=== PATIENT | female | born 1975 | race Caucasian/White ===

== ENCOUNTER 2016-11-27 17:27 | Emergency (ER) | payer OTHER ==
[~2016-11-27] VITALS: Ht 160 cm; Wt 116.3 kg
[2016-11-27 17:48] VITALS: TEMP 36.7; Ht 160 cm; Wt 116.3 kg
[2016-11-27] MEDS ORDERED: ZNTT/150 PO (18:11)
[2016-11-27] MEDS ORDERED: PANT40TA PO (18:11)
[2016-11-27] MEDS ORDERED: PRENTAB26 PO (18:11)
--- NOTE | 2016-11-27 18:33 | DIAGNOSTIC IMAGING REPORT ---
LEFT VENOUS DOPP LOWER EXT UNILAT CLINICAL HISTORY: Left calf pain. Hx dvt/pe. + pain. Dyspnea. Edema. TECHNIQUE: Ultrasound COMPARISON STUDY: None FINDINGS: Normal study IMPRESSION: Normal study The above report was generated using voice recognition software. It may contain grammatical, syntax or spelling errors. Electronically signed by: Price Nice M.D. 11/27/2016 6:32 PM Dictated Date/Time: 11/27/2016 6:31 PM
[2016-11-27 18:50] VITALS: BP 118/86; PULSE 69; O2SAT 96
--- NOTE | 2016-11-27 19:32 | EMERGENCY ROOM VISIT NOTE ---
History First contact with patient: 17:51 Chief Complaint: CALF PAIN Stated Complaint: L CALF PAIN, HISTORY OF DVT/PE History of Present Illness The patient is a 41 year old female who presents to the Emergency Room with complaints of left calf pain worsening over the past few days. 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 She completed 6 months of anticoagulation and believes that her genetic testing was negative for hypercoagulability. The patient does not have injury or trauma. No significant travel history. At the time of her initial DVT she was on hormonal control, and discontinue this. As the patient is no longer on control, she did check a test a few days ago, and it was positive. Based on dates she estimates that she would be about 6 weeks . The patient has not had fever or chills. No chest pain, chest tightness, or shortness of breath. She states the pain initially started just medial in the calf, and is now posterior. She is able to ambulate. She rates her discomfort a 3/10. She has not taken anything [id number] because of the status. Review of Systems More than 10 systems were reviewed and otherwise negative with the exception of history of present illness. Past Medical/Surgical History History of DVT and PE Family History No pertinent family history Social History Smoking Status: Never Smoker Housing Status: lives with family Occupation Status: employed Current/Historical Medications Scheduled Multivit/Min/Iron/Fol Ac/Pren ( Vitamin), 1 TAB PO TIDM Pantoprazole (Protonix), 40 MG PO QAM Ranitidine (Zantac), 150 MG PO BID Physical Exam Vital Signs Date Time Temp Pulse Resp B/P (MAP) Pulse Ox O2 Delivery O2 Flow Rate FiO2 11/27/16 18:50 69 18 118/86 96 11/27/16 17:48 36.7 82 18 149/95 97 Room Air Pain Rating (0-10): 2.0 Physical Exam VITALS: Vitals are noted on the nurse's note and reviewed by myself. Vital signs stable. GENERAL: Well-developed, well-nourished, white female, who is in no acute distress and resting comfortably. Patient is cooperative with the examination. HEART: Regular rate and rhythm without murmurs gallops or rubs. LUNGS: Clear to auscultation bilaterally without wheezes, rales or rhonchi. No retractions or accessory muscle use. MUSCULOSKELETAL: There is mild left lower extremity tenderness throughout the posterior and medial calf. Several varicose veins are appreciated without obvious phlebitis or palpable cord. No distinct infection noted. There is nonspecific edema to the bilateral lower extremities NEURO: Patient was alert and oriented to person place and time. CN II through XII grossly intact. Medical Decision & Procedures ER Provider Diagnostic Interpretation: LEFT VENOUS DOPP LOWER EXT UNILAT CLINICAL HISTORY: Left calf pain. Hx dvt/pe. + pain. Dyspnea. Edema. TECHNIQUE: Ultrasound COMPARISON STUDY: None FINDINGS: Normal study IMPRESSION: Normal study ED Course Physical exam and history were performed. Nursing notes, EMR, and Medication List were personally reviewed. Patient appears to have left lower extremity pain for the past few days. She does have a history of DVT and PE in the past. Ultrasound was performed and was negative for DVT. The patient and I had a lengthy discussion regarding her findings. She appears comfortable and stable for discharge home. She is to follow with her primary care physician with any ongoing or persisting symptoms. She may use Tylenol for pain control. The patient voiced understanding of this plan and rated her discomfort a 0/10 at the time of departure. The chart was completed utilizing [employer] Speech Voice Recognition Software. Grammatical errors, random word insertions, pronoun errors, and incomplete sentences are an occasional consequence of this system due to software limitations, ambient noise, and hardware issues. Any formal questions or concerns about the content, text, or information contained within the body of this dictation should be directly addressed to the provider for clarification. . Medical Decision Differential diagnosis: Etiologies such as DVT, musculoskeletal, infection, joint effusion, trauma, lymphedema, idiopathic, CHF, as well as others were entertained.. Impression Primary Impression: Pain of left calf Departure Information Dispostion Home / Self-Care Condition GOOD Referrals No Doctor, Assigned (PCP) Forms HOME CARE DOCUMENTATION FORM, IMPORTANT VISIT INFORMATION Patient Instructions My [facility] Additional Instructions You were seen and evaluated today on an emergency basis only. This is not a substitute for, or an effort to provide, complete comprehensive medical care. It is not possible to recognize and treat all injuries or illnesses in a single emergency department visit. For this reason it is recommended that you followup with your primary care physician with any ongoing or persistent symptoms. You are welcome to return to the emergency department anytime with new, worsening, or concerning symptoms.
== END 2016-11-27 18:52 | disposition home or self-care (01) ==
LOC: C.EDB 17:28 → C.EDD 18:52
DX: M79.662 Pain in left lower leg (principal); Z86.718 Personal history of other venous thrombosis and embolism; Z86.711 Personal history of pulmonary embolism

== ENCOUNTER → 2016-11-29 | Outpatient (CLI) | payer OTHER ==
[~2016-11-29] MED LIST: PANT40TA PO; PRENTAB26 PO; ZNTT/150 PO
[2016-11-29 19:10] LABS: URINE APPEARANCE CLEAR (CLEAR); URINE BILIRUBIN NEG (NEG); URINE COLOR YELLOW; URINE NITRITE NEG (NEG); URINE PH 5.5 (4.5-7.5); URINE SPECIFIC GRAVITY 1.009 (1.000-1.030); UROBILINOGEN NEG (NEG)
[2016-11-29 19:11] LABS: MANUAL MICROSCOPIC REQUIRED? NO; REVIEW REQ? NO
== END | disposition home or self-care (01) ==
LOC: C.LABSPEC 15:18
PROVIDERS: ATTEND Obstetrics & Gynecology
DX: O09.511 Supervision of elderly primigravida, first trimester (principal); Z3A.00 Weeks of gestation of pregnancy not specified

== ENCOUNTER → 2016-12-06 | Outpatient (CLI) | payer OTHER ==
[2016-12-06 16:36] LABS: BASO % 0.2 %; BASO ABS # 0.02 K/uL (0-0.2); COMPLETE YES; EOS % 0.6 %; HEMATOCRIT 40.6 % (37-47); IG% 0.2 %; LYMPH ABS # 1.77 K/uL (1.2-3.4); MEAN CELL VOLUME 87.9 fL (80-100); MEAN CORPUSCULAR HEMOGLOBIN 28.8 pg (25-34); MEAN CORPUSCULAR HGB CONC 32.8 g/dl (32-36); MEAN PLATELET VOLUME 10.5 fL (7.4-10.4); MONO % 6.1 %; NEUT % 78.9 %; PLATELET COUNT 296 K/uL (130-400); RED BLOOD COUNT 4.62 M/uL (4.2-5.4); WHITE BLOOD COUNT 12.68 K/uL (4.8-10.8)
[2016-12-09 11:51] LABS: CHLAMYDIA TRACH RNA*** NOT DETECTED (NOT DETECTED); GC (NEIS GONORRHOEAE)RNA** NOT DETECTED (NOT DETECTED)
== END | disposition home or self-care (01) ==
LOC: C.LAB1850 15:02
PROVIDERS: ATTEND Obstetrics & Gynecology
DX: O09.511 Supervision of elderly primigravida, first trimester (principal)

== ENCOUNTER → 2016-12-06 | Outpatient (CLI) | payer OTHER | END | disposition home or self-care (01) | LOC: C.PAPS 07:56 | PROVIDERS: ATTEND Obstetrics & Gynecology | DX: O09.511 Supervision of elderly primigravida, first trimester (principal) ==

== ENCOUNTER → 2017-02-10 | Outpatient (CLI) | payer OTHER ==
[2017-02-10 22:32] LABS: GTGD 50 Grams
== END | disposition home or self-care (01) ==
LOC: C.LAB1850 15:05
PROVIDERS: ATTEND Obstetrics & Gynecology
DX: O09.512 Supervision of elderly primigravida, second trimester (principal); Z3A.00 Weeks of gestation of pregnancy not specified

== ENCOUNTER 2017-04-08 07:20 | Emergency (ER) | payer OTHER ==
[~2017-04-08] VITALS: Ht 160 cm; Wt 122.2 kg
[2017-04-08 07:23] VITALS: TEMP 36.5; Ht 160 cm; Wt 122.2 kg
[2017-04-08] MEDS ORDERED: SODIUM CHLORIDE 0.9% 1000ML 1,000 ML IV STA (07:48)
[2017-04-08] MEDS ORDERED: OPTIRAY 320 IV PRN (08:00)
[2017-04-08 08:02] LABS: BASO % 0.2 %; BASO ABS # 0.02 K/uL (0-0.2); COMPLETE YES; EOS % 0.6 %; HEMATOCRIT 36.1 % (37-47); IG% 0.3 %; LYMPH % 10.8 %; LYMPH ABS # 0.93 K/uL (1.2-3.4); MEAN CELL VOLUME 89.1 fL (80-100); MEAN CORPUSCULAR HEMOGLOBIN 30.4 pg (25-34); MEAN CORPUSCULAR HGB CONC 34.1 g/dl (32-36); MONO % 6.5 %; NEUT % 81.6 %; PLATELET COUNT 234 K/uL (130-400); RED BLOOD COUNT 4.05 M/uL (4.2-5.4); WHITE BLOOD COUNT 8.63 K/uL (4.8-10.8)
--- NOTE | 2017-04-08 08:03 | EMERGENCY ROOM VISIT NOTE ---
History Report prepared by Ruthy: Edna Sandoval Under the Supervision of: Dr. Nola Biswas M.D. First contact with patient: 07:28 Chief Complaint: TACHYCARDIA Stated Complaint: TACHYCARDIA Nursing Triage Summary: Walking into work today and felt tachycardic, feels short of breath, checked BP at work, systolic was 160's. Pt is 26 weeks . Reports hx of PE. History of Present Illness The patient is a 41 year old female who presents to the Emergency Room with complaints of sudden tachycardia that began prior to arrival. The patient states that she walked up the stairs to work this morning and states that she felt her heart rate become tachycardic. She states that she became short of breath as well. The patient reports that she was placed on the monitor and states that her tachycardia was 150 beats per minute and her blood pressure was 162/92 mmHg. The patient states that she is currently 26 weeks . She states that three years ago she had a DVT and PE. The patient states that her blood clots were due to her NuvaRing. She states that she is no longer on Lovenox, but states that the plan is to place her on 6 weeks of Lovenox shots . The patient states that her shortness of breath today feels different than her shortness of breath she had with her PEs. Source of History: patient Onset: prior to arrival Position: other (global) Quality: other (tachycardia) Timing: other (sudden) Associated Symptoms: + SOB Review of Systems See HPI for pertinent positives & negatives. A total of 10 systems reviewed and were otherwise negative. Past Medical & Surgical Medical Problems: (1) Acid reflux (2) DVT (deep venous thrombosis) (3) Hypertension (4) Pulmonary embolism Surgical Problems: (1) S/P gastrectomy Family History Cancer Diabetes mellitus Heart disease Hypertension Social History Smoking Status: Never Smoker Smokeless Tobacco Use: No Alcohol Use: none Marital Status: Housing Status: lives with family Occupation Status: employed Current/Historical Medications Scheduled Multivit/Min/Iron/Fol Ac/Pren ( Vitamin), 1 TAB PO TIDM Pantoprazole (Protonix), 40 MG PO QAM Ranitidine (Zantac), 150 MG PO BID Allergies Coded Allergies: Bupropion (Verified Allergy, Severe, HIVES, 04/08/17) Physical Exam Vital Signs Date Time Temp Pulse Resp B/P (MAP) Pulse Ox O2 Delivery O2 Flow Rate FiO2 04/08/17 12:58 81 18 140/71 96 Room Air 04/08/17 11:45 76 16 125/70 97 Room Air 04/08/17 10:23 87 18 143/84 99 Room Air 04/08/17 08:05 92 112/66 99 Room Air 91 120/74 114 144/80 04/08/17 07:52 98 18 141/88 97 Room Air 04/08/17 07:44 102 04/08/17 07:23 98 Room Air 04/08/17 07:23 36.5 109 20 142/85 99 Room Air Physical Exam Vital signs reviewed. General: Well-appearing female, in no significant distress. Pulse ox is noted to be stable HEENT: No scleral icterus, PERRLA, neck supple. Atraumatic. Cardiovascular: Borderline tachycardic rate and regular rhythm, no extra sounds. Pulmonary: Clear to auscultation bilaterally, normal work of breathing. Abdomen: Obese. Soft, nontender, nondistended, positive bowel sounds. Musculoskeletal: Atraumatic, non-pitting edema to lower extremities, spider varicosities of the legs bilaterally. Neurologic: Patient awake alert and oriented x 3 Skin: Warm, dry, no rash Medical Decision & Procedures ER Provider Diagnostic Interpretation: Radiology results as stated below per my review and radiologist interpretation: CT ANGIOGRAM OF THE CHEST CLINICAL HISTORY: Shortness of breath. . COMPARISON STUDY: No previous studies for comparison. TECHNIQUE: Following the IV administration of 91 mL of Optiray-320, CT angiogram of the thorax was performed from the thoracic inlet to the lung bases utilizing the pulmonary embolus protocol. Images are reviewed in the axial, sagittal, and coronal planes. IV contrast was administered without complication. MIP imaging was performed. A dose lowering technique was utilized adhering to the principles of ALARA. CT DOSE: 542.23 mGy.cm FINDINGS: No pathologically enlarged axillary mediastinal or hilar lymph nodes were visualized. There was no evidence of thoracic aortic dilatation. There is suboptimal pulmonary arterial opacification. There are no filling defects to indicate acute pulmonary emboli. No pleural effusions are visualized. There was no evidence of focal pulmonary consolidation. IMPRESSION: 1. No pulmonary emboli identified however pulmonary opacification was suboptimal. Correlation with leg ultrasonography is therefore recommended 2. No evidence of focal pulmonary consolidation Electronically signed by: Gary Hines M.D. 04/08/2017 9:23 AM Dictated Date/Time: 04/08/2017 9:19 AM ULTRASOUND VENOUS DOPPLER LWR EXT BILA CLINICAL HISTORY: . History of pulmonary embolism. COMPARISON STUDY: November 27, 2016 FINDINGS: Real-time and color flow Doppler imaging were performed. Flow was seen within the femoral, popliteal and calf veins with no intraluminal thrombus demonstrated. The saphenous vein is patent. There are patent superficial varicosities within the anterior mid thigh IMPRESSION: No evidence of lower extremity DVT Electronically signed by: Gary Hines M.D. 04/08/2017 11:37 AM Dictated Date/Time: 04/08/2017 11:36 AM GALLBLADDER-ABD LIMITED CLINICAL HISTORY: 41 years-old Female presenting with preg, RUQ pain, tachycardia. TECHNIQUE: Real-time grayscale and limited color Doppler ultrasound imaging of the abdomen limited to the right upper quadrant was performed. COMPARISON: None. FINDINGS: Pancreas: Visualized portions of the pancreatic head and body normal. Liver: Normal echogenicity and echotexture. The liver measures 17 cm in maximal sagittal dimension. No sonographic evidence of hepatic mass. Main portal vein patent with normal directional flow. Biliary: No intrahepatic biliary ductal dilatation. Common bile duct measures up to 5 mm in diameter. Gallbladder: No evidence of gallstones, gallbladder wall thickening, gallbladder distention, or pericholecystic fluid or inflammatory change. Trace gallbladder sludge may be present. Right kidney: Normal in appearance. No hydronephrosis. Ascites: None. IMPRESSION: Trace gallbladder sludge may be present. No cholelithiasis or biliary ductal dilatation. Electronically signed by: Chin Foote M.D. 04/08/2017 11:39 AM Dictated Date/Time: 04/08/2017 11:37 AM Laboratory Results 04/08/17 07:35 Red Blood Count 4.05, Mean Corpuscular Volume 89.1, Mean Corpuscular Hemoglobin 30.4, Mean Corpuscular Hemoglobin Concent 34.1, Mean Platelet Volume 10.0, Neutrophils (%) (Auto) 81.6, Lymphocytes (%) (Auto) 10.8, Monocytes (%) (Auto) 6.5, Eosinophils (%) (Auto) 0.6, Basophils (%) (Auto) 0.2, Neutrophils # (Auto) 7.04, Lymphocytes # (Auto) 0.93, Monocytes # (Auto) 0.56, Eosinophils # (Auto) 0.05, Basophils # (Auto) 0.02 04/08/17 07:35 Test 04/08/17 07:35 04/08/17 08:12 White Blood Count 8.63 K/uL (4.8-10.8) Red Blood Count 4.05 M/uL (4.2-5.4) Hemoglobin 12.3 g/dL (12.0-16.0) Hematocrit 36.1 % (37-47) Mean Corpuscular Volume 89.1 fL (80-100) Mean Corpuscular Hemoglobin 30.4 pg (25-34) Mean Corpuscular Hemoglobin Concent 34.1 g/dl (32-36) Platelet Count 234 K/uL (130-400) Mean Platelet Volume 10.0 fL (7.4-10.4) Neutrophils (%) (Auto) 81.6 % Lymphocytes (%) (Auto) 10.8 % Monocytes (%) (Auto) 6.5 % Eosinophils (%) (Auto) 0.6 % Basophils (%) (Auto) 0.2 % Neutrophils # (Auto) 7.04 K/uL (1.4-6.5) Lymphocytes # (Auto) 0.93 K/uL (1.2-3.4) Monocytes # (Auto) 0.56 K/uL (0.11-0.59) Eosinophils # (Auto) 0.05 K/uL (0-0.5) Basophils # (Auto) 0.02 K/uL (0-0.2) RDW Standard Deviation 45.8 fL (36.4-46.3) RDW Coefficient of Variation 14.1 % (11.5-14.5) Immature Granulocyte % (Auto) 0.3 % Immature Granulocyte # (Auto) 0.03 K/uL (0.00-0.02) Anion Gap 9.0 mmol/L (3-11) Est Creatinine Clear Calc Drug Dose 171.0 ml/min Estimated GFR () 136.1 Estimated GFR (Non- 117.5 BUN/Creatinine Ratio 11.2 (10-20) Calcium Level 8.7 mg/dl (8.5-10.1) Magnesium Level 2.0 mg/dl (1.8-2.4) Total Bilirubin 0.3 mg/dl (0.2-1) Direct Bilirubin < 0.1 mg/dl (0-0.2) Aspartate Amino Transf (AST/SGOT) 15 U/L (15-37) Alanine Aminotransferase (ALT/SGPT) 21 U/L (12-78) Alkaline Phosphatase 64 U/L (45-117) Total Protein 7.2 gm/dl (6.4-8.2) Albumin 3.0 gm/dl (3.4-5.0) Thyroid Stimulating Hormone (TSH) 1.770 uIu/ml (0.300-4.500) Urine Color YELLOW Urine Appearance CLEAR (CLEAR) Urine pH 7.0 (4.5-7.5) Urine Specific [place] 1.006 (1.000-1.030) Urine Protein NEG (NEG) Urine Glucose (UA) NEG (NEG) Urine Ketones NEG (NEG) Urine Occult Blood NEG (NEG) Urine Nitrite NEG (NEG) Urine Bilirubin NEG (NEG) Urine Urobilinogen NEG (NEG) Urine Leukocyte Esterase NEG (NEG) Laboratory results per my review. Medications Administered Medications (Trade) Dose Ordered Sig/Huan Route Start Time Stop Time Status Last Admin Dose Admin Sodium Chloride 1,000 ml @ 999 mls/hr Q1H1M STAT IV 04/08/17 07:48 04/08/17 08:49 DC 04/08/17 07:48 999 MLS/HR ECG Indication: tachycardia Rate (beats per minute): 85 Rhythm: normal sinus Findings: no acute ischemic change, no ectopy, other (t wave flattening ) ED Course 0748: Ordered Sodium Chloride 1000 ml @ 999 mls/hr IV. 0750: Past medical records reviewed. The patient was evaluated in room A11B. A complete history and physical examination was performed. 1244: I reevaluated the patient and she is resting comfortably. I discussed the test results with her and I discussed the treatment plan. She verbalized complete understanding and agreement. She is ready to go home. Medical Decision Differential diagnosis: Etiologies such as premature contractions, electrolyte abnormality, cardiac dysrhythmia, thyroid dysfunction, pulmonary embolism, infection, gastrointestinal, as well as others were entertained. This patient was evaluated and appeared to be in no significant distress. IV access was obtained and laboratory work was drawn. The patient was hydrated with normal saline solution. EKG reveals a sinus tachycardia. The patient is 26 weeks . She has been evaluated by hematology for history of DVT and PE. She is not currently anticoagulated. The patient's symptoms did improve with IV hydration. Given her history we did discuss the risks and benefits of a CT angiogram. This study was performed and unfortunately was timed poorly. Ultrasound of the lower extremities were performed and are negative for DVT. The patient was reassessed and was feeling well. She was advised to drink plenty of fluids. She'll follow-up with DENTAL SALES REPRESENTATIVE within the next several days and return to the ER for worsening of symptoms or any medical concerns. Medication Reconcilliation Current Medication List: was personally reviewed by me Impression Primary Impression: Dehydration Additional Impression: Scribe Attestation The scribe's documentation has been prepared under my direction and personally reviewed by me in its entirety. I confirm that the note above accurately reflects all work, treatment, procedures, and medical decision making performed by me. Departure Information Dispostion Discharge/Transfer to [facility] Referrals No Doctor, Assigned (PCP) Forms HOME CARE DOCUMENTATION FORM, IMPORTANT VISIT INFORMATION, WORK / SCHOOL INSTRUCTIONS Patient Instructions My [facility] Additional Instructions Diagnosis: Dehydration, Please drink plenty of clear fluids. Follow-up with your DENTAL SALES REPRESENTATIVE as soon as possible for reevaluation. Return to the emergency department for worsening of symptoms or any medical concerns. Problem Qualifiers
[2017-04-08 08:18] LABS: ALT/SGPT 21 U/L (12-78); BLOOD UREA NITROGEN 6 mg/dl (7-18); BUN/CREATININE RATIO 11.2 (10-20); CALCIUM 8.7 mg/dl (8.5-10.1); CARBON DIOXIDE 22 mmol/L (21-32); CHLORIDE 105 mmol/L (98-107); CREATININE 0.56 mg/dl (0.60-1.20); GLUCOSE 102 mg/dl (70-99); POTASSIUM 3.7 mmol/L (3.5-5.1); SODIUM 136 mmol/L (136-145)
[2017-04-08 08:23] LABS: URINE APPEARANCE CLEAR (CLEAR); URINE BILIRUBIN NEG (NEG); URINE COLOR YELLOW; URINE NITRITE NEG (NEG); URINE SPECIFIC GRAVITY 1.006 (1.000-1.030); UROBILINOGEN NEG (NEG); ZZUR CULT IF INDIC CLEAN CATCH NO
[2017-04-08 08:29] LABS: ALKALINE PHOSPHATASE 64 U/L (45-117); AST/SGOT 15 U/L (15-37)
[2017-04-08 08:29] LABS: MANUAL MICROSCOPIC REQUIRED? NO; REVIEW REQ? NO
--- NOTE | 2017-04-08 09:25 | DIAGNOSTIC IMAGING REPORT ---
CT ANGIOGRAM OF THE CHEST CLINICAL HISTORY: Shortness of breath. . COMPARISON STUDY: No previous studies for comparison. TECHNIQUE: Following the IV administration of 91 mL of Optiray-320, CT angiogram of the thorax was performed from the thoracic inlet to the lung bases utilizing the pulmonary embolus protocol. Images are reviewed in the axial, sagittal, and coronal planes. IV contrast was administered without complication. MIP imaging was performed. A dose lowering technique was utilized adhering to the principles of ALARA. CT DOSE: 542.23 mGy.cm FINDINGS: No pathologically enlarged axillary mediastinal or hilar lymph nodes were visualized. There was no evidence of thoracic aortic dilatation. There is suboptimal pulmonary arterial opacification. There are no filling defects to indicate acute pulmonary emboli. No pleural effusions are visualized. There was no evidence of focal pulmonary consolidation. IMPRESSION: 1. No pulmonary emboli identified however pulmonary opacification was suboptimal. Correlation with leg ultrasonography is therefore recommended 2. No evidence of focal pulmonary consolidation Electronically signed by: Gary Hines M.D. 04/08/2017 9:23 AM Dictated Date/Time: 04/08/2017 9:19 AM
--- NOTE | 2017-04-08 11:38 | DIAGNOSTIC IMAGING REPORT ---
ULTRASOUND VENOUS DOPPLER LWR EXT BILA CLINICAL HISTORY: . History of pulmonary embolism. COMPARISON STUDY: November 27, 2016 FINDINGS: Real-time and color flow Doppler imaging were performed. Flow was seen within the femoral, popliteal and calf veins with no intraluminal thrombus demonstrated. The saphenous vein is patent. There are patent superficial varicosities within the anterior mid thigh IMPRESSION: No evidence of lower extremity DVT Electronically signed by: Gary Hines M.D. 04/08/2017 11:37 AM Dictated Date/Time: 04/08/2017 11:36 AM
--- NOTE | 2017-04-08 11:40 | DIAGNOSTIC IMAGING REPORT ---
GALLBLADDER-ABD LIMITED CLINICAL HISTORY: 41 years-old Female presenting with preg, RUQ pain, tachycardia. TECHNIQUE: Real-time grayscale and limited color Doppler ultrasound imaging of the abdomen limited to the right upper quadrant was performed. COMPARISON: None. FINDINGS: Pancreas: Visualized portions of the pancreatic head and body normal. Liver: Normal echogenicity and echotexture. The liver measures 17 cm in maximal sagittal dimension. No sonographic evidence of hepatic mass. Main portal vein patent with normal directional flow. Biliary: No intrahepatic biliary ductal dilatation. Common bile duct measures up to 5 mm in diameter. Gallbladder: No evidence of gallstones, gallbladder wall thickening, gallbladder distention, or pericholecystic fluid or inflammatory change. Trace gallbladder sludge may be present. Right kidney: Normal in appearance. No hydronephrosis. Ascites: None. IMPRESSION: Trace gallbladder sludge may be present. No cholelithiasis or biliary ductal dilatation. Electronically signed by: Chin Foote M.D. 04/08/2017 11:39 AM Dictated Date/Time: 04/08/2017 11:37 AM
[2017-04-08 12:58] VITALS: BP 140/71; PULSE 81; O2SAT 96
== END 2017-04-08 13:16 | disposition home or self-care (01) ==
LOC: C.EDB 07:20 → C.EDA 13:16
DX: E86.0 Dehydration (principal); Z33.1 Pregnant state, incidental; I10 Essential (primary) hypertension; K21.9 Gastro-esophageal reflux disease without esophagitis; Z86.711 Personal history of pulmonary embolism; Z86.718 Personal history of other venous thrombosis and embolism; Z90.3 Acquired absence of stomach [part of]; Z83.3 Family history of diabetes mellitus; Z82.49 Family history of ischemic heart disease and other diseases of the circulatory system

== ENCOUNTER → 2017-05-02 | Outpatient (CLI) | payer OTHER ==
[~2017-05-02] MED LIST changes: +ALPR0.25 PO; +ALPR0.254 PO; +CMD10 PO; +DOCU-94 PO; +LVNIS120 SC; +LVNIS40 SQ; +RANI150T85 PO; +WARF5TAB7 PO; -ZNTT/150 PO
[2017-05-02 15:31] LABS: HEMATOCRIT 35.7 % (37-47)
== END | disposition home or self-care (01) ==
LOC: C.LAB1850 14:18
PROVIDERS: ATTEND Obstetrics & Gynecology
DX: O09.512 Supervision of elderly primigravida, second trimester (principal); Z3A.00 Weeks of gestation of pregnancy not specified

== ENCOUNTER 2017-07-11 11:43 | Observation (INO) | payer OTHER ==
[~2017-07-11 11:43] MED LIST changes: -ALPR0.25 PO; -ALPR0.254 PO; -CMD10 PO; -DOCU-94 PO; -LVNIS120 SC; -LVNIS40 SQ; -WARF5TAB7 PO
[2017-07-11] MEDS ORDERED: LACTATED RINGER'S 1000ML 500 ML IV ONE (14:47)
[2017-07-11] MEDS ORDERED: LACTATED RINGER'S 1000ML 1,000 ML IV SCH (14:47)
[2017-07-11] MEDS ORDERED: IV FLUIDS COMPLETED PRN (15:00)
== END 2017-07-11 17:00 | disposition home or self-care (01) ==
LOC: C.OPB 11:43 → C.LD 11:44 → C.OPB 14:49 → EDSTATUS 07-14 11:41
PROVIDERS: ADMIT Obstetrics & Gynecology; ATTEND Obstetrics & Gynecology
DX: O09.513 Supervision of elderly primigravida, third trimester (principal); Z3A.39 39 weeks gestation of pregnancy

== ENCOUNTER 2017-07-12 00:46 | Inpatient (IN) | payer OTHER ==
[~2017-07-12] VITALS: Ht 160 cm; Wt 129.0 kg
[2017-07-12] MEDS ORDERED: LACTATED RINGER'S 1000ML 1,000 ML IV SCH ×2 (00:57→07:50)
[2017-07-12] MEDS ORDERED: LACTATED RINGER'S 1000ML 500 ML IV ONE (00:57)
[2017-07-12] MEDS: BUTORPHANOL TARTRATE 1 MG/ML VIAL IV PRN ×2 (01:28→04:02)
[2017-07-12] MEDS ORDERED: LACTATED RINGER'S 1000ML 1,000 ML IV PRN (07:50)
[2017-07-12] MEDS ORDERED: EpHEDrine SULFATE INJ 50 MG/ML AMP ONE (08:00)
[2017-07-12] MEDS ORDERED: BUPIVACAINE 0.25% 30 ML VIAL ONE (08:00)
[2017-07-12] MEDS ORDERED: FENTANYL CITRATE INJ 50 MCG/1 ML 2 ML VIAL ONE ×2 (08:01→08:48)
[2017-07-12] MEDS ORDERED: FENTANYL 2MCG/ML ROPIV 1.25MG/ML 100ML BAG EPI ONE (08:01)
[2017-07-12 08:14] LABS: HEMATOCRIT 33.8 % (37-47); HEMOGLOBIN 11.4 g/dL (12.0-16.0); MEAN CELL VOLUME 86.9 fL (80-100); MEAN CORPUSCULAR HEMOGLOBIN 29.3 pg (25-34); MEAN CORPUSCULAR HGB CONC 33.7 g/dl (32-36); MEAN PLATELET VOLUME 9.9 fL (7.4-10.4); PLATELET COUNT 233 K/uL (130-400); RED CELL DISTRIBUTION WIDTH CV 14.7 % (11.5-14.5); RED CELL DISTRIBUTION WIDTH SD 45.8 fL (36.4-46.3); WHITE BLOOD COUNT 11.83 K/uL (4.8-10.8)
[2017-07-12] MEDS ORDERED: PENICILLIN G POTASSIUM IV 6 MU in DEXTROSE 5% 250ML 250 ML IV ONE (08:15)
[2017-07-12] MEDS ORDERED: DiphenhydrAMINE HCL 50 MG/ML VIAL IV PRN (10:00)
[2017-07-12] MEDS ORDERED: ONDANSETRON INJ 2 MG/ML 2 ML VIAL IV PRN (10:00)
[2017-07-12] MEDS ORDERED: FENTANYL 2MCG/ML ROPIV 1.25MG/ML 100ML BAG EPI PRN (10:00)
[2017-07-12] MEDS ORDERED: EpHEDrine SULFATE INJ 50 MG/ML AMP IV PRN (10:00)
[2017-07-12] MEDS ORDERED: NALBUPHINE HCL INJ 10 MG/ML AMP IV PRN (10:00)
[2017-07-12] MEDS ORDERED: NALOXONE HCL INJ 0.4 MG/1 ML VIAL/CARP IV PRN (10:00)
[2017-07-12] MEDS ORDERED: LACTATED RINGER'S 1000ML 500 ML IV PRN ×2 (10:00→11:13)
[2017-07-12] MEDS ORDERED: NALOXONE HCL INJ 1 MG in SODIUM CHLORIDE 0.9% 1000ML 1,000 ML IV PRN (10:00)
[2017-07-12] MEDS ORDERED: OXYTOCIN 30 UNITS/500ML NSS IV PRN ×2 (11:15→18:15)
[2017-07-12] MEDS: PENICILLIN G POTASSIUM IV 3 MU in DEXTROSE 5% 100ML 100 ML IV PRN ×2 (12:37→16:18)
[2017-07-12 16:25] VITALS: Ht 160 cm; Wt 129.0 kg
[2017-07-12] MEDS ORDERED: MISOPROSTOL 200 MCG TAB ONE (18:12)
[2017-07-12] MEDS ORDERED: OXYCODONE/ACETAMINOPHEN 5-325 TAB PO PRN (18:15)
[2017-07-12] MEDS ORDERED: BENZOCAINE 20% AER SPR 82.5 GM CAN EXT PRN (18:15)
[2017-07-12] MEDS ORDERED: ACETAMINOPHEN 325 MG TAB PO PRN (18:15)
[2017-07-12] MEDS ORDERED: LANOLIN OINT EXT PRN (18:15)
[2017-07-12] MEDS ORDERED: DIPHTHERIA/TETANUS/PERTUSSIS 0.5 ML SYR/VIAL IM. ONE (18:15)
[2017-07-12] MEDS ORDERED: HYDROCORTISONE ACETATE 25 MG SUPP PR PRN (18:15)
[2017-07-12] MEDS ORDERED: SUPERCREAM 0.870 % 15GM JAR EXT PRN (18:15)
[2017-07-12] MEDS ORDERED: OXYTOCIN INJ 20 UNITS in LACTATED RINGER'S 1000ML 1,000 ML IV SCH (18:30)
[2017-07-12] MEDS ORDERED: MISOPROSTOL 200 MCG TAB PR ONE (18:30)
--- NOTE | 2017-07-12 18:59 | Anesthesia Procedure Note ---
Anesthesia Epidural Removal Nt Date & Time Jul 12, 2017 at 18:59 Vital Signs Pain Intensity: 8.0 Notes Mental Status: alert / awake / arousable, participated in evaluation Nausea / Vomiting: adequately controlled Pain: adequately controlled Airway Patency, RR, SpO2: stable & adequate BP & HR: stable & adequate Hydration State: stable & adequate Neuraxial Anesthesia: was administered, sensory block is resolving Anesthetic Complications: no major complications apparent, pt satisfied with anesthetic care Epidural: removed without complications, with tip intact
--- NOTE | 2017-07-12 19:07 | DELIVERY SUMMARY ---
DATE OF OPERATION: 07/12/2017 The patient dilated to complete and pushed to deliver a viable male , Apgars 8 and 9 via over second degree perineal laceration. Mouth and nose bulb suctioned at the perineum. Shoulders and body delivered with ease. Infant was vigorous at . Cord clamped at 30 seconds of life. Infant to maternal abdomen, where the cord was doubly clamped and then cut. Placenta delivered spontaneously and intact, 3-vessel cord. Hemostasis achieved with dilute Pitocin and uterine massage, however due to an uncontracted lower uterine segment, the bladder was drained under sterile conditions for 250 mL of urine. Additionally 800 mcg of rectal Cytotec was administered. Uterine tone improved. The cervix and sulci were intact. The laceration was repaired in the usual fashion with 3-0 Vicryl. EBL 400 mL. Mother and baby stable in recovery. I attest to the content of the Intraoperative Record and any orders documented therein. Any exceptions are noted below. MTDD
[2017-07-12 21:05] VITALS: BP 129/83; PULSE 93; TEMP 36.9; O2SAT 97
[2017-07-12] MEDS: RANITIDINE HCL 150 MG TAB PO SCH (21:25)
[2017-07-12] MEDS: DOCUSATE SODIUM 100 MG CAP PO SCH (21:25)
[2017-07-12 23:25] VITALS: BP 133/84; PULSE 84; TEMP 36.8; O2SAT 98
--- NOTE | 2017-07-12 23:34 | Progress Note ---
Progress Note Date of Service Jul 12, 2017. Progress Note reviewed with pharmacy and confirmed with nursing. epidural removed at 630pm today. no further bleeding at site. pt's hematology consult earlier in reviewed with plan for pp lovenox 40mg daily sq. given now more than 4hr from removal neuraxial anesthesia and about 6+hr from delivery will plan to start medication. pt offered arelis fallon if she wants as its noted that she routinely uses.
[2017-07-12] MEDS: ENOXAPARIN 40 MG/0.4 ML SYR SQ SCH (23:52)
[2017-07-13 04:15] VITALS: BP 125/75; PULSE 91; TEMP 36.8; O2SAT 94
[2017-07-13 07:54] LABS: HEMATOCRIT 28.7 % (37-47); HEMOGLOBIN 9.2 g/dL (12.0-16.0)
[2017-07-13 08:12] LABS: PTT PATIENT 26.1 SECONDS (21.0-31.0)
[2017-07-13 08:30] VITALS: BP 113/75; PULSE 84; TEMP 36.9; O2SAT 97
[2017-07-13] MEDS: IBUPROFEN 600 MG TAB PO PRN ×3 (08:33→18:19)
[2017-07-13] MEDS: PANTOprazole SOD 40 MG TAB PO SCH (08:33)
[2017-07-13] MEDS: RANITIDINE HCL 150 MG TAB PO SCH ×2 (08:33→20:37)
[2017-07-13] MEDS: DOCUSATE SODIUM 100 MG CAP PO SCH ×2 (08:33→20:37)
--- NOTE | 2017-07-13 08:51 | Progress Note ---
Subjective Jul 13, 2017. Subjective conversation w/ patient, physical exam Ambulation: ambulating normally Voiding: no voiding problems Diet Tolerance: Regular Diet Feeding Type: Breast Feeding Pain: good pain control Comment: cramps in right calf, feels musculoskelatal. no cord, no redness no lump. Objective Vital Signs Date Time Temp Pulse Resp B/P (MAP) Pulse Ox O2 Delivery O2 Flow Rate FiO2 07/13/17 04:15 36.8 91 16 125/75 (92) 94 Room Air 07/12/17 23:25 98 Room Air 07/12/17 23:25 36.8 84 20 133/84 (100) 98 Room Air 07/12/17 21:05 97 Room Air 07/12/17 21:05 36.9 93 18 129/83 (98) 97 Room Air Physical Exam General Appearance: WELL-APPEARING, WD/WN, NO APPARENT DISTRESS Respiratory/Chest: lungs clear Cardiovascular: regular rate, rhythm Abdomen: non tender Fundus: Firm, Relation to Umbilicus (2 down) Extremities: non-tender, normal inspection, no calf tenderness Laboratory Results Last 24 Hours Test 07/13/17 07:36 Hemoglobin 9.2 g/dL Hematocrit 28.7 % Prothrombin Time 10.4 SECONDS Prothromb Time International Ratio 1.0 Activated Partial Thromboplast Time 26.1 SECONDS Partial Thromboplastin Ratio 1.0 Assessment and Plan Problem List Medical Problems: (1) Dehydration Status: Acute (2) Pain of left calf Status: Acute (3) Status: Acute Post- Day#: 1 Continue Routine Care: stable routine care. advised close monitoring of her muscle ache in calf. given her history. cont on lovenox. daily.
[2017-07-13 12:00] VITALS: BP 114/72; PULSE 77; TEMP 36.4; O2SAT 95
[2017-07-13 16:40] VITALS: BP 103/69; PULSE 79; TEMP 36.6; O2SAT 97
[2017-07-13] MEDS: ENOXAPARIN 40 MG/0.4 ML SYR SQ SCH (20:39)
[2017-07-13 23:30] VITALS: BP 117/65; PULSE 75; TEMP 36.7
[2017-07-14] MEDS ORDERED: LVNIS40 SQ (00:39)
--- NOTE | 2017-07-14 00:40 | Discharge Instructions ---
Discharge Instructions Date of Service Jul 14, 2017. Admission Reason for Admission: Normal Labor Discharge Discharge Diagnosis / Problem: AFTER DELIVERY Discharge Goals Goal(s): Routine recovery after delivery Medications Continue Dispensed Medications: supercream, dermaplast, tucks, lansinoh Activity Recommendations Activity Limitations: as noted below ACTIVITY RECOMMENDATIONS: * Gradual return to full activity over the next 2-3 weeks. * No lifting - nothing heavier than baby over the next 2-3 weeks. * Do not engage in vigorous exercise, sexual activity or sports until cleared by your physician. * Do not drive or operate any motorized equipment until cleared by your physician. * You may shower/bathe daily. MEDICATIONS: For discomfort or pain, you may use Acetaminophen (Tylenol), Ibuprofen (Advil), or Naproxen (Aleve) following the package directions. For constipation you may use Colace following the package directions. BREAST CARE: If you are not breast feeding: * Wear a supportive bra 24 hours a day for one to two weeks. * Avoid stimulating your breasts and nipples as much as possible during the first few weeks after delivery. * When taking a shower, have the warm water hit your back, not breasts. * When your breasts feel full, apply ice packs. Usually three to four times a day helps ease the discomfort. * Take a mild pain medication (Tylenol / Motrin) when you are uncomfortable. If breast feeding: * Use breast milk to lubricate nipples. Lansinoh cream may be used for sore nipples. You do not need to remove cream prior to breast feeding. If using a different brand of cream, check the label for directions regarding removal of cream prior to nursing. * Wear a supportive bra. * If having problems with breasts or breast feeding, call a configuration management consultant or your health care provider. EPISIOTOMY CARE: After delivery, if you have an episiotomy (stitches), the following steps will ease discomfort and aid healing. * For the first 24 hours after delivery, place ice packs next to your episiotomy to help reduce swelling. * After the first 24 hour-period, sitz baths, either portable or in the tub, are suggested. A shower with a shower arm sprayed over the episiotomy may be comforting. * Rosie care should be done after each voiding and bowel movement. Squirt warm water from a plastic bottle over the perineum (region of the body between the anus and urinary opening) and pat dry. * Use Dermoplast to ease discomfort. Shake container. Amite directly over the episiotomy. Place a Tucks on a clean sanitary pad next to your episiotomy. SPECIAL CARE INSTRUCTIONS: When you are discharged from the hospital, it is important for you to follow the instructions listed below: * During the first week at home, you should be able to care for yourself and your baby. In addition, the usual light household activities are encouraged. * Limit your activities to the way you feel. Do not try to clean the house or move furniture. Be sensible. * If you actively engage in sports and have done so up until the time of your delivery, you may resume these activities as soon as you feel able. This may take up to one month or even longer. Use good judgment. * Continue to take your vitamins for at least six weeks after the of your baby. * Your diet need not be limited unless you were on a special diet before your delivery. Breast-feeding mothers need around 2500 calories per day and at least 64-80 ounces of fluid per day (8 to 10 glasses). * You should eat foods from the four major food groups. Crash diets or fad diets are to be avoided. Eating lean meats, fresh fruits and vegetables, low-fat dairy products, high fiber foods and a regular exercise program, will help you get back to your pre- weight without putting your health at risk. * Constipation is sometimes a problem after delivery. Take a mild laxative as needed. If breast feeding, Milk of Magnesia is acceptable to use. You may use a suppository or Fleets enema if no episiotomy. * A daily shower or tub bath is suggested. Be sure to thoroughly and gently dry the perineum. * A bloody vaginal discharge will usually continue until around four weeks post . A small amount of bleeding may continue for as long as six weeks. Vaginal discharge changes from the bright red bleeding after delivery to pink then brownish and finally yellowish-pink before becoming white and disappearing. * Bleeding may increase with activity. Your first period may come in 4-8 weeks. If you are breast feeding, your period may be delayed even longer. * [place] (sex) can begin whenever both you and your partner feel comfortable and do not have any form of genital infection. It is recommended that you wait at least six weeks for internal and external healing to occur. If you have questions, please talk to your health care practitioner. A condom should be used to prevent infection and . * Foreplay, gentle intercourse and lubrication is very important the first several times to prevent pain. A water-based lubricant such as K-Y jelly or Astroglide may be used. * If you have RH negative blood and your baby is RH positive, you will receive RHOGAM by injection prior to discharge. The nurse will give you a card to keep with you that has the date and place that you received RHOGAM after delivery. * During your care, you had a Rubella screen done to check for the presence of rubella antibodies in your blood. If your test was negative, you will receive a Rubella vaccine prior to discharge. This vaccine may cause a fever, soreness at the injection site and flu-like symptoms. If these symptoms persist, notify your health care practitioner. is not advised for one month after a Rubella vaccine. * Verbalizes understanding of car seat law as reviewed with patient nursing. * Car Seat hand-out given and reviewed with patient by nursing. * Shaken baby information reviewed with patient by nursing. Call you doctor if: * Heavy bleeding (saturating several pads an hour) or passing clots the size of your fist. * A fever >101 degrees F (38.3 degrees C) on two occasions four hours apart and /or chills. * Unusual pain in the pelvic or vaginal areas. * "Baby Blues" lasting longer than two weeks. If you have any questions or concerns, call your health care practitioner at . FOLLOW UP VISIT: * Please call the office at to schedule a 6 week examination. It is important you keep this appointment. It is important for you to make arrangements for either yearly or twice yearly check-ups thereafter. . Instructions / Follow-Up Instructions / Follow-Up YOUR VINCENTNOX SCRIPT WAS SENT TO YOUR PHARMACY Current Hospital Diet Patient's current hospital diet: Regular OB Diet Discharge Diet Recommended Diet: Regular Diet Pending Studies Studies pending at discharge: no Medical Emergencies . Who to Call and When: Medical Emergencies: If at any time you feel your situation is an emergency, please call 911 immediately. . Non-Emergent Contact Non-Emergency issues call your: [facility] . . "Provider Documentation" section prepared by Bhavna Pedraza. .
[2017-07-14] MEDS: IBUPROFEN 600 MG TAB PO PRN ×2 (05:53→14:48)
--- NOTE | 2017-07-14 06:40 | Progress Note ---
Subjective Jul 14, 2017. Subjective conversation w/ patient, physical exam Ambulation: ambulating normally Voiding: no voiding problems Passing Gas: Yes Diet Tolerance: Regular Diet Lochia: Small Feeding Type: Breast Feeding Pain: Rated at 2/10, well controlled with motrin Comment: Pt seen and assessed at bedside this am; no acute events overnight Review of Systems Constitutional: No fever, No chills Respiratory: No cough, No shortness of breath Cardiac: + edema, No chest pain Abdomen: No nausea, No vomiting Female : No dysuria no headaches Pt reports return of right calf cramp. States this goes away with movement, feels like muscle cramp and does not feel like her previous DVT Objective Vital Signs Date Time Temp Pulse Resp B/P (MAP) Pulse Ox O2 Delivery O2 Flow Rate FiO2 07/13/17 23:30 36.7 75 18 117/65 (82) Room Air 07/13/17 23:30 Room Air 07/13/17 16:40 36.6 79 18 103/69 (80) 97 Room Air 07/13/17 16:40 97 Room Air 07/13/17 12:00 36.4 77 20 114/72 (86) 95 Room Air 07/13/17 08:30 36.9 84 18 113/75 (88) 97 Room Air 07/13/17 08:30 Room Air Physical Exam General Appearance: WELL-APPEARING, WD/WN, NO APPARENT DISTRESS Respiratory/Chest: chest non-tender, lungs clear, normal breath sounds, no respiratory distress Cardiovascular: regular rate, rhythm, no murmur Abdomen: normal bowel sounds, non tender, soft Fundus: Firm, Non-Tender, Relation to Umbilicus (difficult to assess from body habitus) Extremities: normal range of motion, non-tender, normal inspection, no calf tenderness, + pedal edema (1+ bilaterally), + pertinent finding (No calf size discrepancy, no R calf warmth, cord, etc; negative dominga's sign) Laboratory Results Last 24 Hours Test 07/13/17 07:36 Hemoglobin 9.2 g/dL Hematocrit 28.7 % Prothrombin Time 10.4 SECONDS Prothromb Time International Ratio 1.0 Activated Partial Thromboplast Time 26.1 SECONDS Partial Thromboplastin Ratio 1.0 Medications Current Inpatient Medications Medications (Trade) Dose Ordered Sig/Huan Route Start Time Stop Time Status Last Admin Dose Admin Pantoprazole Sodium (Protonix Tab) 40 mg QAM PO 07/13/17 08:00 08/12/17 07:59 07/13/17 08:33 40 MG Ranitidine HCl (zANTac TAB) 150 mg BID PO 07/12/17 20:00 08/11/17 19:59 07/13/17 20:37 150 MG Oxytocin (Pitocin IV) 30 units UD PRN IV 07/12/17 18:15 08/11/17 18:14 Benzocaine (Dermoplast Aero Spr) 1 appln PRN PRN EXT 07/12/17 18:15 08/11/17 18:14 Cocaine HCl (Supercream 0.870% Cr) BID PRN EXT 07/12/17 18:15 07/26/17 18:14 Hydrocortisone Acetate (Anusol Hc Supp) 25 mg BID PRN IN 07/12/17 18:15 08/11/17 18:14 Lanolin (Lanolin Oint) PRN PRN EXT 07/12/17 18:15 08/11/17 18:14 Ibuprofen (Motrin Tab) 600 mg Q4H PRN PO 07/12/17 18:15 08/11/17 18:14 07/14/17 05:53 600 MG Acetaminophen (Tylenol Tab) 650 mg Q6H PRN PO 07/12/17 18:15 08/11/17 18:14 Oxycodone/ Acetaminophen (Percocet 5-325mg Tab) 1 tab Q4H PRN PO 07/12/17 18:15 07/26/17 18:14 Docusate Sodium (coLACE CAP) 100 mg BID PO 07/12/17 20:00 08/11/17 19:59 07/13/17 20:37 100 MG Enoxaparin Sodium (Lovenox Inj) 40 mg QPM SQ 07/12/17 23:45 08/11/17 23:44 07/13/17 20:39 40 MG Assessment and Plan Problem List Medical Problems: (1) Dehydration Status: Acute (2) Pain of left calf Status: Acute (3) Status: Acute Post- Day#: 2 Continue Routine Care: 41 yo G1PO PPD 2 s/p Pt doing well clinically Monitor calf cramp/encourage ambulation Encourage breast feeding/first mom education on Pain control with Rx prn Discharge instructions reviewed Resident Physician Supervision Note: I was present with Dr. Obrien during the history and exam. I discussed the case with the resident and agree with the findings and plan as documented in the note. Any exceptions or clarifications are listed here: doing well. pt feels her right calf pain on and off is musculoskeletal. on exam no findings. r= l, no cord, redness or warmth. pt notes cramps went away yesterday and improved with moving. she will monitor and let us know about any worsening sx. taking lovenox qd x 6wks. script already sent to [facility]. she will plan 6wk pp f/u and routine instructions reviewed. ff about 2 down. non tender. Documented By: Bhavna Pedraza Resident Tracking Resident Involvement: Resident Care Provided Care Provided: OB Delivery
[2017-07-14 07:25] VITALS: BP 131/84; PULSE 74; TEMP 36.7
[2017-07-14] MEDS: RANITIDINE HCL 150 MG TAB PO SCH (07:33)
[2017-07-14] MEDS: DOCUSATE SODIUM 100 MG CAP PO SCH (07:33)
[2017-07-14] MEDS: PANTOprazole SOD 40 MG TAB PO SCH (07:34)
[2017-07-14 16:45] VITALS: BP 134/86; PULSE 75; TEMP 36.6; O2SAT 99
[2017-07-14 17:15] VITALS: BP_DIAS 86; PULSE 75; TEMP 36.6
== END 2017-07-14 19:00 | disposition home or self-care (01) | DRG 775 ==
LOC: C.OPB 00:46 → C.LD 00:48 → C.OPB 07:58 → C.OBG 20:54
PROVIDERS: ADMIT Obstetrics & Gynecology; ATTEND Obstetrics & Gynecology
PROC: 0KQM0ZZ Repair Perineum Muscle, Open Approach (ICD-10-PCS; principal; 2017-07-12)
PROC: 10E0XZZ Delivery of Products of Conception, External Approach (ICD-10-PCS; principal; 2017-07-12)
DX: O70.1 Second degree perineal laceration during delivery (principal); O99.824 Streptococcus B carrier state complicating childbirth; Z37.0 Single live birth; Z3A.39 39 weeks gestation of pregnancy; R25.2 Cramp and spasm

== ENCOUNTER → 2017-07-20 | Outpatient (CLI) | payer OTHER ==
[~2017-07-20] MED LIST changes: +CMD10 PO; +LVNIS120 SC; +WARF5TAB7 PO; +XNX25 PO
[2017-07-20 11:38] LABS: INR 2.9 (0.9-1.1)
--- NOTE | 2017-07-20 17:20 | Progress Note ---
Progress Note Date of Service Jul 20, 2017. Progress Note Called and spoke with Mrs. Mishra this afternoon. Informed her of INR of 2.9. She received 20mg daily x 2 days. She had not had any coumadin today. Recommending HOLDING COUMADIN TODAY. Repeat INR tomorrow, ideally in the [facility] anticoagulation clinic. She voiced understanding. She needs overlap therapy w/ lovenox - she will continue 1mg/kg BID until told to stop. Vonda MONTOYA MD
== END | disposition home or self-care (01) ==
LOC: C.LAB 10:59
PROVIDERS: ATTEND Internal Medicine
DX: I82.409 Acute embolism and thrombosis of unspecified deep veins of unspecified lower extremity (principal); I26.99 Other pulmonary embolism without acute cor pulmonale

== ENCOUNTER → 2017-07-21 | Outpatient (CLI) | payer OTHER ==
[2017-07-21 13:17] LABS: HEMATOCRIT 36.1 % (37-47); HEMOGLOBIN 11.9 g/dL (12.0-16.0); MEAN CELL VOLUME 87.4 fL (80-100); MEAN CORPUSCULAR HEMOGLOBIN 28.8 pg (25-34); MEAN PLATELET VOLUME 9.2 fL (7.4-10.4); PLATELET COUNT 374 K/uL (130-400); RED CELL DISTRIBUTION WIDTH CV 14.7 % (11.5-14.5); RED CELL DISTRIBUTION WIDTH SD 47.2 fL (36.4-46.3); WHITE BLOOD COUNT 7.17 K/uL (4.8-10.8)
[2017-07-21 13:33] LABS: INR 4.7 (0.9-1.1)
--- NOTE | 2017-07-21 20:27 | Progress Note ---
Progress Note Date of Service Jul 21, 2017. Progress Note Spoke with patient by phone. Informed her of test results. Told her to STOP lovenox and HOLD coumadin. She will return to [facility] tomorrow for INR check. Has coumadin clinic f/u on Friday. Has had no bleeding issues and no heavy vaginal bleeding. Virgilio Pathak MD
== END | disposition home or self-care (01) ==
LOC: C.LAB 12:50
PROVIDERS: ATTEND Internal Medicine
DX: I82.409 Acute embolism and thrombosis of unspecified deep veins of unspecified lower extremity (principal); I26.99 Other pulmonary embolism without acute cor pulmonale

== ENCOUNTER → 2017-07-22 | Outpatient (CLI) | payer OTHER ==
[2017-07-22 12:27] LABS: INR 2.2 (0.9-1.1)
--- NOTE | 2017-07-22 20:24 | Progress Note ---
Progress Note Date of Service Jul 22, 2017. Progress Note INR 2.2 today. I had Aspen Lawson, RN - nurse navigator for our hospitalist team - contact patient and give the following instructions: 1. coumadin 7.5mg x 1 today 2. no lovenox 3. f/u anticoagulation clinic tomorrow w/ Dr. Meléndez I discussed Ms. Mishra's coumadin dosing with Dr. Meléndez today as well. Vonda MONTOYA MD
== END | disposition home or self-care (01) ==
LOC: C.LAB 11:39
PROVIDERS: ATTEND Internal Medicine
DX: I82.409 Acute embolism and thrombosis of unspecified deep veins of unspecified lower extremity (principal); I26.99 Other pulmonary embolism without acute cor pulmonale

== ENCOUNTER 2017-09-19 21:06 | Emergency (ER) | payer OTHER ==
[~2017-09-19] VITALS: Ht 160 cm; Wt 127.4 kg
[~2017-09-19 21:06] MED LIST changes: -CMD10 PO; -LVNIS120 SC; -PRENTAB26 PO
[2017-09-19 21:09] VITALS: TEMP 36.7; Ht 160 cm; Wt 127.4 kg
[2017-09-19] MEDS ORDERED: ALBUTEROL 0.083% NEBU SOLN 3 ML VIAL INH STA ×2 (21:26→21:49)
[2017-09-19 21:28] VITALS: O2SAT 99
--- NOTE | 2017-09-19 21:33 | EMERGENCY ROOM VISIT NOTE ---
History Report prepared by Ruthy: Tito Mejía Under the Supervision of: Dr. Scotty Lema M.D. First contact with patient: 21:19 Chief Complaint: SHORTNESS OF BREATH Stated Complaint: SOB History of Present Illness The patient is a 41 year old female who presents to the Emergency Room with complaints of constant SOB beginning a week ago. The patient states that she had PEs a few months ago and believes that her symptoms were resolving. She notes that she has since begun to feel SOB while doing everyday activities like changing her son's diaper and getting up off the ground. She denies any CP. She reports that her INR has been low recently. The patient states that her INR was last checked two days ago and was 1.8. She notes that she also has a history of DVTs. She reports that she is not currently and gave 10 weeks ago. Source of History: patient Onset: a week ago Position: chest Quality: other (SOB) Timing: constant Associated Symptoms: No chest pain Note: The patient states that her INR was low at 1.8 two days ago. Review of Systems See HPI for pertinent positives & negatives. A total of 10 systems reviewed and were otherwise negative. Past Medical & Surgical Medical Problems: (1) 39 weeks gestation of (2) Acid reflux (3) DVT (deep venous thrombosis) (4) Hypertension (5) Normal labor (6) Pulmonary embolism (7) Pulmonary embolism affecting , antepartum Surgical Problems: (1) S/P gastrectomy Family History Cancer Diabetes mellitus Heart disease Hypertension Social History Smoking Status: Never Smoker Alcohol Use: none Marital Status: Housing Status: lives with family Occupation Status: employed Current/Historical Medications Scheduled Pantoprazole (Protonix), 40 MG PO QAM Ranitidine (Zantac), 150 MG PO BID Warfarin Sod (Jantoven), 5 MG PO 4XWK Warfarin Sod (Jantoven), 7.5 MG PO MWF Scheduled PRN Alprazolam (Xanax), 0.25 MG PO Q6 PRN for Anxiety Allergies Coded Allergies: Bupropion (Verified Allergy, Severe, HIVES, 07/17/17) Physical Exam Vital Signs Date Time Temp Pulse Resp B/P (MAP) Pulse Ox O2 Delivery O2 Flow Rate FiO2 09/20/17 00:45 84 16 145/66 99 Room Air 09/19/17 23:36 76 16 127/77 97 Room Air 09/19/17 22:30 74 16 135/73 100 Room Air 09/19/17 21:34 76 09/19/17 21:28 99 Room Air 09/19/17 21:28 99 Room Air 09/19/17 21:20 99 Room Air 09/19/17 21:09 36.7 83 18 152/88 100 Room Air Physical Exam GENERAL: Awake, alert, well-appearing, in no acute distress HENT: Normocephalic, atraumatic. Oropharynx unremarkable. EYES: Normal conjunctiva. Sclera non-icteric. NECK: Supple. No nuchal rigidity. FROM. No JVD. RESPIRATORY: Clear to auscultation. CARDIAC: Regular rate, normal rhythm. Extremities warm and well perfused. Pulses equal. ABDOMEN: Soft, non-distended. No tenderness to palpation. No rebound or guarding. No masses. RECTAL: Deferred. MUSCULOSKELETAL: Chest examination reveals no tenderness. The back is symmetrical on inspection without obvious abnormality. There is no CVA tenderness to palpation. No joint edema. LOWER EXTREMITIES: Calves are equal size bilaterally and non-tender. No edema. No discoloration. NEURO: Normal sensorium. No sensory or motor deficits noted. SKIN: No rash or jaundice noted. Medical Decision & Procedures ER Provider Diagnostic Interpretation: Radiology results as stated below per my review and radiologist interpretation: CHEST ONE VIEW PORTABLE FINDINGS: Lung volumes are normal. No pneumothorax or pleural effusion is noted. There is no consolidation or evidence for pulmonary edema. There is borderline cardiomegaly. IMPRESSION: No acute cardiopulmonary findings. Electronically signed by: Ang Robertson M.D. 09/19/2017 10:04 PM BILATERAL LOWER EXTREMITY VENOUS DOPPLER FINDINGS: The bilateral common femoral, superficial femoral and popliteal veins were compressible. Augmentation was normal. There was nonocclusive deep venous thrombus within the right peroneal and left posterior tibial and peroneal veins. Similar findings were shown on exam of July 17, 2017. IMPRESSION: Nonocclusive deep venous thrombus within the right peroneal and left posterior tibial and peroneal veins. Similar findings were shown on exam of July 17, 2017 and therefore this thrombus is likely chronic. No definite evidence for acute deep venous thrombus. Electronically signed by: Ang Robertson M.D. 09/19/2017 10:27 PM CTA CHEST: Comparison is made to prior CT chest on 07/17/2017. No pulmonary embolus identified. No aortic aneurysm or dissection. No acute pulmonary parenchymal abnormality identified. Postsurgical changes of the stomach. Radiologist: Ilene Goldberg M.D. Laboratory Results 09/19/17 21:20 Red Blood Count 4.15, Mean Corpuscular Volume 81.2, Mean Corpuscular Hemoglobin 26.5, Mean Corpuscular Hemoglobin Concent 32.6, Mean Platelet Volume 9.2, Neutrophils (%) (Auto) 55.2, Lymphocytes (%) (Auto) 34.5, Monocytes (%) (Auto) 8.8, Eosinophils (%) (Auto) 1.1, Basophils (%) (Auto) 0.3, Neutrophils # (Auto) 4.41, Lymphocytes # (Auto) 2.76, Monocytes # (Auto) 0.70, Eosinophils # (Auto) 0.09, Basophils # (Auto) 0.02 09/19/17 21:20 Test 09/19/17 21:20 09/19/17 21:45 White Blood Count 7.99 K/uL (4.8-10.8) Red Blood Count 4.15 M/uL (4.2-5.4) Hemoglobin 11.0 g/dL (12.0-16.0) Hematocrit 33.7 % (37-47) Mean Corpuscular Volume 81.2 fL (80-100) Mean Corpuscular Hemoglobin 26.5 pg (25-34) Mean Corpuscular Hemoglobin Concent 32.6 g/dl (32-36) Platelet Count 348 K/uL (130-400) Mean Platelet Volume 9.2 fL (7.4-10.4) Neutrophils (%) (Auto) 55.2 % Lymphocytes (%) (Auto) 34.5 % Monocytes (%) (Auto) 8.8 % Eosinophils (%) (Auto) 1.1 % Basophils (%) (Auto) 0.3 % Neutrophils # (Auto) 4.41 K/uL (1.4-6.5) Lymphocytes # (Auto) 2.76 K/uL (1.2-3.4) Monocytes # (Auto) 0.70 K/uL (0.11-0.59) Eosinophils # (Auto) 0.09 K/uL (0-0.5) Basophils # (Auto) 0.02 K/uL (0-0.2) RDW Standard Deviation 44.3 fL (36.4-46.3) RDW Coefficient of Variation 15.1 % (11.5-14.5) Immature Granulocyte % (Auto) 0.1 % Immature Granulocyte # (Auto) 0.01 K/uL (0.00-0.02) Prothrombin Time 17.6 SECONDS (9.0-12.0) Prothromb Time International Ratio 1.7 (0.9-1.1) D-Dimer 740 ug/L FEU (0-500) Anion Gap 7.0 mmol/L (3-11) Est Creatinine Clear Calc Drug Dose 129.3 ml/min Estimated GFR () 114.5 Estimated GFR (Non- 98.8 BUN/Creatinine Ratio 20.6 (10-20) Calcium Level 8.5 mg/dl (8.5-10.1) Total Bilirubin 0.3 mg/dl (0.2-1) Aspartate Amino Transf (AST/SGOT) 37 U/L (15-37) Alanine Aminotransferase (ALT/SGPT) 56 U/L (12-78) Alkaline Phosphatase 84 U/L (45-117) Total Creatine Kinase 158 U/L (26-192) Creatine Kinase MB 1.1 ng/ml (0.5-3.6) Creatine Kinase MB Ratio 0.7 (0-3.0) Troponin I < 0.015 ng/ml (0-0.045) Total Protein 7.1 gm/dl (6.4-8.2) Albumin 3.4 gm/dl (3.4-5.0) Globulin 3.7 gm/dl (2.5-4.0) Albumin/Globulin Ratio 0.9 (0.9-2) Urine Color YELLOW Urine Appearance CLEAR (CLEAR) Urine pH 5.5 (4.5-7.5) Urine Specific Blanch 1.008 (1.000-1.030) Urine Protein NEG (NEG) Urine Glucose (UA) NEG (NEG) Urine Ketones NEG (NEG) Urine Occult Blood NEG (NEG) Urine Nitrite NEG (NEG) Urine Bilirubin NEG (NEG) Urine Urobilinogen NEG (NEG) Urine Leukocyte Esterase TRACE (NEG) Urine WBC (Auto) 1-5 /hpf (0-5) Urine RBC (Auto) 0-4 /hpf (0-4) Urine Hyaline Casts (Auto) 0 /lpf (0-5) Urine Epithelial Cells (Auto) 10-20 /lpf (0-5) Urine Bacteria (Auto) NEG (NEG) Labs reviewed by ED physician. Medications Administered Medications (Trade) Dose Ordered Sig/Huan Route Start Time Stop Time Status Last Admin Dose Admin Albuterol Sulfate (Ventolin 0.083% 2.5MG/3ML Neb) 2.5 mg NOW STAT INH 09/19/17 21:26 09/19/17 21:27 DC 09/19/17 21:34 2.5 MG Albuterol Sulfate (Ventolin 0.083% 2.5MG/3ML Neb) 2.5 mg NOW STAT INH 09/19/17 21:49 09/19/17 21:50 DC 09/19/17 22:29 2.5 MG ECG Per My Interpretation Indication: abdominal pain Rate (beats per minute): 83 Rhythm: normal sinus Findings: other (No ST elevation/depression) ED Course 2119: Past medical records reviewed. The patient was evaluated in room B12. A complete history and physical examination was performed. 0047: Upon reexamination the patient is stable. I discussed results and treatment plan with the patient. She verbalizes agreement and understanding. The patient is ready for discharge. Medical Decision Differential diagnosis: Etiologies such as appendicitis, diverticulitis, PUD, biliary pathology, UTI, pancreatitis, obstruction, mesenteric ischemia, aortic pathology, infections, inflammatory bowel disease, renal colic, as well as others were entertained. This is a 41-year-old female who presents emergency department complaining of shortness of breath. Patient notes that her INR level has not been therapeutic. Here in the emergency department it is 1.7 and she has an elevation in her d-dimer. Using shared medical decision making with the patient decided to send her for CAT scan of the chest. Duplex of her lower extremities only shows chronic thrombus. She was given breathing treatments while in the emergency department. The patient's CAT scan of her chest does not show any evidence of PE. Based on this with the above findings using shared medical decision making with the patient we decided to use Lovenox shots for the next 5 days until she can get her INR redrawn after the holiday weekend. Patient was in agreement with the treatment plan. Medication Reconcilliation Current Medication List: was personally reviewed by me Blood Pressure Screening Patient's blood pressure: Normal blood pressure Blood pressure disposition: Did not require urgent referral Impression Primary Impression: Dyspnea Scribe Attestation The scribe's documentation has been prepared under my direction and personally reviewed by me in its entirety. I confirm that the note above accurately reflects all work, treatment, procedures, and medical decision making performed by me. Departure Information Dispostion Home / Self-Care Referrals Raine Gutierrez D.O. (PCP) Forms HOME CARE DOCUMENTATION FORM, IMPORTANT VISIT INFORMATION Patient Instructions My [facility] Additional Instructions Take Lovenox 120 mg daily for next 5 days Follow up with coumadin clinic Friday You have been examined and treated today on an emergency basis only. This is not a substitute for, or an effort to provide, complete comprehensive medical care. It is impossible to recognize and treat all injuries or illnesses in a single emergency department visit. It is therefore important that you follow up closely with Dr Gutierrez. Call as soon as possible for an appointment. Thank you for your time and consideration. I look forward to speaking with you again soon. Please don't hesitate to call us if you have any questions. Problem Qualifiers Primary Impression: Dyspnea Dyspnea type: unspecified Qualified Codes: R06.00 - Dyspnea, unspecified
[2017-09-19 21:42] LABS: BASO % 0.3 %; BASO ABS # 0.02 K/uL (0-0.2); EOS % 1.1 %; EOS ABS # 0.09 K/uL (0-0.5); HEMATOCRIT 33.7 % (37-47); IG# 0.01 K/uL (0.00-0.02); LYMPH % 34.5 %; LYMPH ABS # 2.76 K/uL (1.2-3.4); MEAN CELL VOLUME 81.2 fL (80-100); MEAN CORPUSCULAR HEMOGLOBIN 26.5 pg (25-34); MEAN CORPUSCULAR HGB CONC 32.6 g/dl (32-36); MEAN PLATELET VOLUME 9.2 fL (7.4-10.4); MONO % 8.8 %; NEUT % 55.2 %; NEUT ABS # 4.41 K/uL (1.4-6.5); PLATELET COUNT 348 K/uL (130-400); RED CELL DISTRIBUTION WIDTH CV 15.1 % (11.5-14.5); RED CELL DISTRIBUTION WIDTH SD 44.3 fL (36.4-46.3); WHITE BLOOD COUNT 7.99 K/uL (4.8-10.8)
[2017-09-19 21:53] LABS: INR 1.7 (0.9-1.1)
[2017-09-19] MEDS ORDERED: ALPR0.25 PO (21:55)
--- NOTE | 2017-09-19 22:05 | DIAGNOSTIC IMAGING REPORT ---
CHEST ONE VIEW PORTABLE CLINICAL HISTORY: Shortness of breath. COMPARISON STUDY: Chest CT July 17, 2017. FINDINGS: Lung volumes are normal. No pneumothorax or pleural effusion is noted. There is no consolidation or evidence for pulmonary edema. There is borderline cardiomegaly. IMPRESSION: No acute cardiopulmonary findings. Electronically signed by: Ang Robertson M.D. 09/19/2017 10:04 PM Dictated Date/Time: 09/19/2017 10:03 PM
[2017-09-19 22:08] LABS: ALBUMIN 3.4 gm/dl (3.4-5.0); ALKALINE PHOSPHATASE 84 U/L (45-117); ALT/SGPT 56 U/L (12-78); AST/SGOT 37 U/L (15-37); BLOOD UREA NITROGEN 16 mg/dl (7-18); CALCIUM 8.5 mg/dl (8.5-10.1); CARBON DIOXIDE 25 mmol/L (21-32); CKMB 1.1 ng/ml (0.5-3.6); CREATININE 0.76 mg/dl (0.60-1.20); GLUCOSE 82 mg/dl (70-99); POTASSIUM 3.8 mmol/L (3.5-5.1); SODIUM 137 mmol/L (136-145); TOTAL PROTEIN 7.1 gm/dl (6.4-8.2)
[2017-09-19] MEDS ORDERED: OPTIRAY 320 IV PRN (22:15)
--- NOTE | 2017-09-19 22:29 | DIAGNOSTIC IMAGING REPORT ---
BILATERAL LOWER EXTREMITY VENOUS DOPPLER CLINICAL HISTORY: Shortness of breath. COMPARISON STUDY: Bilateral lower extremity venous Doppler July 17, 2017. TECHNIQUE: Sonography of the deep venous system of the bilateral lower extremities was performed. Compression and augmentation were evaluated. FINDINGS: The bilateral common femoral, superficial femoral and popliteal veins were compressible. Augmentation was normal. There was nonocclusive deep venous thrombus within the right peroneal and left posterior tibial and peroneal veins. Similar findings were shown on exam of July 17, 2017. IMPRESSION: Nonocclusive deep venous thrombus within the right peroneal and left posterior tibial and peroneal veins. Similar findings were shown on exam of July 17, 2017 and therefore this thrombus is likely chronic. No definite evidence for acute deep venous thrombus. Electronically signed by: Ang Robertson M.D. 09/19/2017 10:27 PM Dictated Date/Time: 09/19/2017 10:25 PM
[2017-09-20 00:45] VITALS: BP 145/66; PULSE 84; O2SAT 99
--- NOTE | 2017-09-20 06:53 | DIAGNOSTIC IMAGING REPORT ---
CHEST CTA for PULMONARY ARTERIES CT DOSE: 625.88 mGy.cm HISTORY: Short of breath. TECHNIQUE: Multiaxial CT images of the chest were performed following the intravenous administration of contrast to evaluate the pulmonary arteries. Maximal intensity projection images were also obtained. A dose lowering technique was utilized adhering to the principles of ALARA. COMPARISON STUDY: Chest CTA 07/17/2017. FINDINGS: There are postoperative changes within the stomach which are partially visualized. The liver and spleen are unremarkable. No mediastinal or hilar lymphadenopathy. No pleural or pericardial effusions. No fractures within the visualized osseous structures. The central airways are patent. No pneumothorax. The lungs are clear. No evidence for aortic dissection. Suboptimal opacification of the pulmonary arteries. However, no acute pulmonary embolus identified. Questionable linear densities within the left upper lobe segmental pulmonary artery on image 183 may be due to the streak artifact from the contrast. IMPRESSION: No evidence for acute pulmonary embolus. Electronically signed by: Nir Lara M.D. 09/20/2017 6:52 AM Dictated Date/Time: 09/20/2017 6:45 AM
== END 2017-09-20 00:50 | disposition home or self-care (01) ==
LOC: C.EDB 21:07
DX: R06.00 Dyspnea, unspecified (principal); I10 Essential (primary) hypertension; Z79.01 Long term (current) use of anticoagulants; Z51.81 Encounter for therapeutic drug level monitoring; Z88.8 Allergy status to other drugs, medicaments and biological substances

== ENCOUNTER 2019-09-03 07:39 | Inpatient (IN) ==
[2019-09-03] MEDS ORDERED: OXYTOCIN 30 UNITS/500 ML BAG IV PRN ×2 (07:42)
[2019-09-03] MEDS ORDERED: PENICILLIN G POTASSIUM 6 MU in DEXTROSE 5% 250 ML IV ONE (08:00)
[2019-09-03 08:05] LABS: Hematocrit (blood only) 36.4 % (37-47); Hemoglobin 11.8 g/dL (12.0-16.0); Mean Corpuscular Hemoglobin 29.3 pg (25-34); Mean Corpuscular Volume 90.3 fL (80-100); Mean Platelet Volume 10.3 fL (7.4-10.4); Nucleated RBC # (auto) 0.02 K/uL (0-0); Nucleated RBC % (auto) 0.2 %; Platelet Count 246 K/uL (130-400); RDW Coefficient of Variation 14.6 % (11.5-14.5); RDW Standard Deviation 48.1 fL (36.4-46.3); Red Blood Count 4.03 M/uL (4.2-5.4); White Blood Count 10.05 K/uL (4.8-10.8)
[2019-09-03 08:15] LABS: INR 0.9 (0.9-1.1); Partial Thromboplastin Ratio 0.8; Partial Thromboplastin Time 23.1 Seconds (21.0-31.0)
[2019-09-03 08:25] LABS: Mean Corpuscular Hgb Conc 32.4 g/dL (32-36)
--- NOTE | 2019-09-03 08:30 | History & Physical Report ---
Date of Service September 03, 2019 Assessment & Plan (1) GBS (group B Streptococcus carrier), +RV culture, currently : plan to treat with pcn (2) Pulmonary embolism affecting , antepartum: being induced for this indication so can affectively manage anticoagulants. Last dose of heparin last night. Plan pitocin induction. arom when appropriate. epidural on demand. fetus category one. Plan Lovenox 40mg pp per hematology recommendations. Anticipate . History of Present Illness Chief Complaint: here for induction Primary Care Provider: Raine Gutierrez DO Patient is a 43yowf with iup at 39 2/7 weeks who presents for induction. complicated by anticoagulation. she had a provoked dvt in 2013 and was on coumadin. She then had bilateral dvt after the of her first baby. she has been on lovenox throughout this and followed by heme. She switched to heparin at 36 weeks and her last dose was last night at 6pm. She is gbs positive. She is morbidly obese with a 50# weight gain this . Patient is ama at 43 years old. nl echo, testing reassuring, nl growth us. Declined genetic testing. Allergies Allergy/AdvReac Type Severity Reaction Status Date / Time bupropion Allergy Severe Hives Verified 09/03/19 08:25 Home Medications Home Medications Medication Instructions Recorded Confirmed Type pantoprazole [Protonix] 40 mg PO QAM 02/26/18 09/03/19 History PNV cmb#95-ferrous fumarate-FA 1 tab PO DAILY 01/22/19 09/03/19 History [] heparin (porcine) 5,000 unit/mL 5,000 units SQ Q12H #24 ml 08/10/19 09/03/19 Rx injection syringe famotidine [Pepcid] 40 mg DAILY 09/03/19 09/03/19 History Patient History Medical History (Updated 09/03/19 @ 08:36 by Melissa Martin MD, FACOG) 39 weeks gestation of Acid reflux (Chronic) Anemia Anxiety Chronic back pain DVT (deep venous thrombosis) JUNE 2017 --> PT TO SEE HEMATOLOGY IN [facility] 03/10/18 Hypertension (Resolved) PT DENIES Iron deficiency anemia Pulmonary embolism JUNE 2017 Varicella Surgical History H/O laparoscopic partial gastrectomy S/P partial gastrectomy (Chronic) S/P wisdom tooth extraction Social History Preferred Language: Mosotho Communication Ability: Effective Sequins Winder Required: No Beliefs That Will Affect Care: None marital status: marital status details: Stef Misrha (48) [phone] Current Living Situation: Family Current Living Situation Comment: and son current occupational status: employed current occupation: RN with [employer] Other Information That Helps Us Care for You: No Feels Safe at Home: Yes Safety Concerns: Feels Safe At This Time Smoking Status: Never smoker Second Hand Exposure: No ; Hx Alcohol Use: No Hx Substance Use: No OB History g1--07/13, , 7#7oz , 39 weeks, pp pe/dvt [employer] History noncontributory Review of Systems All systems reviewed & are unremarkable except as noted in HPI & below Physical Exam Constitutional: WD/WN, vitals as above Cardiovascular: Extremities: + edema (trace); no calf tenderness Psychiatric: A+Ox3, euthymic affect Genitourinary: cx--3/50/-2/soft/mid toco--rhea efm--140s with mod variability, accels to 160s, no decels Results & Data Vital Signs (Past 12 Hours) Vital Signs Temp Pulse Resp BP 09/03/19 07:57 36.8 C 20 09/03/19 07:54 90 134/77 Code Status & VTE Plan VTE Prophylaxis Plan VTE Prophylaxis will be ordered: No Coding Level of Care Code None Diagnoses GBS (group B Streptococcus carrier), +RV culture, currently O99.820 Pulmonary embolism affecting , antepartum O88.219
[2019-09-03] MEDS: LACTATED RINGER'S 1,000 ML IV PRN ×3 (09:07→22:16)
[2019-09-03] MEDS: PENICILLIN G POTASSIUM 3 MU in DEXTROSE 5% 100 ML IV PRN ×3 (13:03→21:05)
[2019-09-03] MEDS ORDERED: BUPIVACAINE 0.25% 30 ML VIAL ONE (14:20)
[2019-09-03] MEDS ORDERED: ePHEDrine sulfate 50 MG/ML AMP ONE (14:20)
[2019-09-03] MEDS ORDERED: fentaNYL 2MCG/ML ROPIV 1.25MG/ML 100 ML BAG EPI ONE (14:21)
[2019-09-03] MEDS ORDERED: fentaNYL citrate 100 MCG/2 ML VIAL ONE (14:21)
--- NOTE | 2019-09-03 14:29 | Anesthesiology Consultation ---
Date of Service September 03, 2019 Assessment & Plan Chart Review Chart Review: Acceptable Risk for Labor Epidural Consults Requested none ASA ASA3 Proposed Anesthesia Anesthesia Type: Labor Epidural Risk / Benefits Reviewed With: PT / POA / Parent / Guardian, Accepts Plan and Informed Consent Obtained History Height/Weight Height: 5 ft 3 in Weight: 145.15 kg Allergies Allergy/AdvReac Type Severity Reaction Status Date / Time bupropion Allergy Severe Hives Verified 09/03/19 08:25 Medications Home Medications Medication Instructions Recorded Confirmed Last Taken pantoprazole [Protonix] 40 mg PO QAM 02/26/18 09/03/19 09/03/19 06:30 PNV cmb#95-ferrous fumarate-FA 1 tab PO DAILY 01/22/19 09/03/19 09/02/19 08:00 [] heparin (porcine) 5,000 unit/mL 5,000 units SQ Q12H #24 ml 08/10/19 09/03/19 09/02/19 19:30 injection syringe famotidine [Pepcid] 40 mg DAILY 09/03/19 09/03/19 09/03/19 06:30 Active Medications Generic Name Dose Route Start Last Admin Trade Name Freq PRN Reason Stop Dose Admin Lactated Ringer's 1,000 mls @ 125 mls/hr 09/03/19 07:42 09/03/19 14:48 Lr IV 09/05/19 07:41 125 mls/hr .Q8H PRN Administration L&D Protocol Protocol Oxytocin 30 units in 500 mls @ 15 mls/hr 09/03/19 07:42 09/03/19 14:00 Pitocin IV 09/05/19 07:41 0.9 units/hr .Q24H PRN 15 mls/hr Labor Induction/Augmentation Titration Protocol 0.9 UNITS/HR Penicillin G Potassium 3 mu/ 106 mls @ 100 mls/hr 09/03/19 07:45 09/03/19 14:04 Dextrose IV 09/13/19 07:44 Infused Q4H PRN Titration Give until delivery NPO Date Last Intake of Fluids: 09/03/19 Time Last Intake of Fluids: 13:30 Date Last Intake of Solids: 09/02/19 Time Last Intake of Solids: 06:00 Last Intake of Solids Comment: [place]+banana Past Medical History Medical History 39 weeks gestation of Acid reflux (Chronic) Anemia Anxiety Chronic back pain DVT (deep venous thrombosis) JUNE 2017 --> PT TO SEE HEMATOLOGY IN [facility] 03/10/18 Hypertension (Resolved) PT DENIES Iron deficiency anemia Pulmonary embolism JUNE 2017 Varicella last heparin dose 19309/02/19 Exercise / Class Metabolic Activity II 4-5 Yardwork/Stairs/Walk up hill Past Family History Family History Mother Breast cancer Past Surgical History Surgical History H/O laparoscopic partial gastrectomy S/P partial gastrectomy (Chronic) S/P wisdom tooth extraction Past Anesthesia History No Hx of Anesthesia Complications and No Family Hx of Anesthesia Complications History of PONV No Hx of PONV and No Hx of Motion Sickness Social History Smoking Status: Never smoker Hx Alcohol Use: No Alcohol type: wine alcohol intake frequency: holidays/special occasions only Hx Substance Use: No substance use type: does not use Physical Exam Vital Signs Last Vital Signs Temp 36.4 C L 09/03/19 11:15 Pulse 99 H 09/03/19 14:29 Resp 20 09/03/19 11:15 BP 118/75 09/03/19 14:09 Pulse Ox 99 09/03/19 14:29 Constitutional + morbidly obese ENMT Mouth: no TMJ abnormality Thyromental Distance: > or= 3.5 Finger Breadths Mallampati Class: III Neck normal visual inspection and trachea midline; neck extension not limited Respiratory normal respiratory effort Auscultation: lungs clear to auscultation bilaterally Cardiovascular Rate/Rhythm: regular rate and regular rhythm Heart Sounds: no murmur Musculoskeletal Spine: normal cervical ROM Extremities: full ROM of extremities Neurologic moves all extremities Psychiatric Orientation: alert and oriented x 3 Testing Laboratory Results 09/03/19 07:50 PT 10.0 Seconds (9.0-12.0) 09/03/19 07:50 INR 0.9 (0.9-1.1) 09/03/19 07:50 APTT 23.1 Seconds (21.0-31.0) 09/03/19 07:50
[2019-09-03] MEDS ORDERED: ONDANSETRON INJ 2 MG/ML 2 ML VIAL IV PRN (15:17)
[2019-09-03] MEDS ORDERED: NALOXONE HCL 1 MG in SODIUM CHLORIDE 0.9% 1000ML 1,000 ML IV PRN (15:17)
[2019-09-03] MEDS ORDERED: METOCLOPRAMIDE HCL 20 MG in SODIUM CHLORIDE 0.9% 50 ML IV PRN (15:17)
[2019-09-03] MEDS ORDERED: ePHEDrine sulfate 50 MG/ML AMP IV PRN (15:17)
[2019-09-03] MEDS ORDERED: NALBUPHINE HCL INJ 10 MG/ML AMP IV PRN (15:17)
[2019-09-03] MEDS ORDERED: NALOXONE HCL 0.4 MG/1 ML VIAL/CARP IV PRN (15:17)
[2019-09-03] MEDS ORDERED: PROMETHAZINE HCL 25 MG in SODIUM CHLORIDE 0.9% 50 ML IV PRN (15:17)
[2019-09-03] MEDS ORDERED: DiphenhydrAMINE HCL 50 MG/ML VIAL IV PRN (15:17)
[2019-09-03] MEDS ORDERED: fentaNYL 2MCG/ML ROPIV 1.25MG/ML 100 ML BAG EPI PRN (15:17)
--- NOTE | 2019-09-03 16:24 | Labor Progress Brief Note ---
Date of Service September 03, 2019 Subjective comfortable with epidural Assessment & Plan (1) Pulmonary embolism affecting , antepartum: continue current management plan. fetus category one. Physical Exam Constitutional: WD/WN, vitals as above Psychiatric: A+Ox3, euthymic affect Genitourinary: cx--4/50/-2 arom--clear toco--q2-5min, pit at 17 efm--130s with mod variability, accels to 160s, no decels Results & Data Vital Signs (Past 12 Hours) Vital Signs Temp Pulse Resp BP Pulse Ox 09/03/19 16:19 82 97 09/03/19 16:18 85 124/65 09/03/19 16:14 81 98 09/03/19 16:13 81 130/69 09/03/19 16:10 79 128/79 09/03/19 16:09 79 100 09/03/19 16:05 83 127/74 09/03/19 16:04 82 100 09/03/19 15:59 94 H 100 09/03/19 15:58 77 129/70 09/03/19 15:54 78 130/67 97 09/03/19 15:49 75 131/72 96 09/03/19 15:46 20 09/03/19 15:44 76 97 09/03/19 15:43 79 133/76 09/03/19 15:39 81 97 09/03/19 15:38 80 131/74 09/03/19 15:35 97 H 94 09/03/19 15:34 84 132/67 96 09/03/19 15:31 20 09/03/19 15:29 82 100 09/03/19 15:28 81 149/71 H 09/03/19 15:24 78 99 09/03/19 15:23 81 147/71 H 09/03/19 15:21 91 H 142/77 H 09/03/19 15:19 85 144/80 H 100 09/03/19 15:17 78 146/83 H 09/03/19 15:16 20 09/03/19 15:15 78 143/85 H 09/03/19 15:14 81 99 09/03/19 15:13 72 137/84 09/03/19 15:11 75 125/72 09/03/19 15:09 76 89/54 L 99 09/03/19 15:07 76 112/56 L 09/03/19 15:05 85 143/64 H 09/03/19 15:04 67 98 09/03/19 15:03 125 H 142/73 H 09/03/19 15:01 100 H 143/90 H 09/03/19 14:59 103 H 155/93 H 98 09/03/19 14:54 99 H 98 09/03/19 14:51 107 H 93 09/03/19 14:49 99 H 99 09/03/19 14:44 91 H 100 09/03/19 14:40 98 H 93 09/03/19 14:39 99 H 99 09/03/19 14:34 100 H 98 09/03/19 14:32 36.6 C 09/03/19 14:29 99 H 99 09/03/19 14:09 87 118/75 09/03/19 13:06 82 117/60 09/03/19 12:20 85 107/67 09/03/19 11:15 36.4 C L 88 20 127/68 09/03/19 11:14 88 127/68 09/03/19 10:08 83 117/82 09/03/19 09:07 87 122/68 09/03/19 07:57 36.8 C 20 09/03/19 07:54 90 134/77 Coding Level of Care Code None Diagnoses Pulmonary embolism affecting , antepartum O88.219
[2019-09-03] MEDS ORDERED: Nursing to Pharmacy Communication ONE (17:19)
--- NOTE | 2019-09-03 20:08 | Labor Progress Brief Note ---
Date of Service September 03, 2019 Subjective comfortable Assessment & Plan (1) Pulmonary embolism affecting , antepartum: iupc placed. goal of mvus of >200. fetus overall reassuring, category one. Physical Exam Constitutional: WD/WN, vitals as above Psychiatric: A+Ox3, euthymic affect Genitourinary: cx--5/80/-2 toco--q2-5min, pit at 25 iupc placed efm--130s with mod variability accels present, early decels with some contractions Results & Data Vital Signs (Past 12 Hours) Vital Signs Temp Pulse Resp BP Pulse Ox 09/03/19 19:59 71 99 09/03/19 19:55 74 119/67 09/03/19 19:54 73 98 09/03/19 19:49 79 98 09/03/19 19:44 80 98 09/03/19 19:40 85 113/65 09/03/19 19:39 79 98 09/03/19 19:34 77 99 09/03/19 19:30 18 09/03/19 19:29 88 95 09/03/19 19:24 81 113/61 98 09/03/19 19:23 36.5 C 18 09/03/19 19:19 70 100 09/03/19 19:14 85 98 09/03/19 19:09 86 114/62 98 09/03/19 19:04 76 99 09/03/19 18:59 81 99 09/03/19 18:58 85 94 09/03/19 18:54 76 110/64 99 09/03/19 18:49 74 99 09/03/19 18:47 87 88 L 09/03/19 18:46 20 09/03/19 18:44 71 100 09/03/19 18:41 73 119/62 09/03/19 18:39 78 100 09/03/19 18:34 72 100 09/03/19 18:29 73 100 09/03/19 18:24 69 111/60 100 09/03/19 18:19 75 99 09/03/19 18:16 20 09/03/19 18:14 83 100 09/03/19 18:09 75 100 09/03/19 18:08 70 118/63 09/03/19 18:04 83 100 09/03/19 18:03 71 115/61 09/03/19 18:02 36.7 C 09/03/19 18:00 73 113/60 09/03/19 17:59 74 99 09/03/19 17:56 77 131/63 09/03/19 17:54 81 99 09/03/19 17:50 71 111/75 09/03/19 17:49 83 99 09/03/19 17:46 20 09/03/19 17:44 76 115/61 97 09/03/19 17:41 84 93 09/03/19 17:40 72 113/60 09/03/19 17:39 73 100 09/03/19 17:35 77 119/61 09/03/19 17:34 76 98 09/03/19 17:29 75 100 09/03/19 17:28 88 105/64 09/03/19 17:24 93 H 99 09/03/19 17:23 82 102/55 L 09/03/19 17:19 79 107/57 L 100 09/03/19 17:16 20 09/03/19 17:14 87 118/60 99 09/03/19 17:09 85 97 09/03/19 17:08 85 120/68 09/03/19 17:04 70 97 09/03/19 17:03 72 118/65 09/03/19 16:59 72 99 09/03/19 16:58 82 116/63 09/03/19 16:57 81 94 09/03/19 16:54 75 99 09/03/19 16:53 74 119/58 L 09/03/19 16:50 80 116/63 09/03/19 16:49 77 99 09/03/19 16:46 36.6 C 20 09/03/19 16:44 82 20 99 09/03/19 16:43 85 114/65 09/03/19 16:39 76 98 08 16:38 79 122/62 09/03/19 16:34 81 121/67 98 09/03/19 16:29 78 116/61 97 09/03/19 16:24 84 100 09/03/19 16:23 77 116/57 L 09/03/19 16:19 82 97 09/03/19 16:18 85 124/65 09/03/19 16:16 20 09/03/19 16:14 81 98 09/03/19 16:13 81 130/69 09/03/19 16:10 79 128/79 09/03/19 16:09 79 100 09/03/19 16:05 83 127/74 09/03/19 16:04 82 100 09/03/19 15:59 94 H 100 09/03/19 15:58 77 129/70 09/03/19 15:54 78 130/67 97 09/03/19 15:49 75 131/72 96 09/03/19 15:46 20 09/03/19 15:44 76 97 09/03/19 15:43 79 133/76 09/03/19 15:39 81 97 09/03/19 15:38 80 131/74 09/03/19 15:35 97 H 94 09/03/19 15:34 84 132/67 96 09/03/19 15:31 20 09/03/19 15:29 82 100 09/03/19 15:28 81 149/71 H 09/03/19 15:24 78 99 09/03/19 15:23 81 147/71 H 09/03/19 15:21 91 H 142/77 H 09/03/19 15:19 85 144/80 H 100 09/03/19 15:17 78 146/83 H 09/03/19 15:16 20 09/03/19 15:15 78 143/85 H 09/03/19 15:14 81 99 09/03/19 15:13 72 137/84 09/03/19 15:11 75 125/72 09/03/19 15:09 76 89/54 L 99 09/03/19 15:07 76 112/56 L 09/03/19 15:05 85 143/64 H 09/03/19 15:04 67 98 09/03/19 15:03 125 H 142/73 H 09/03/19 15:01 100 H 143/90 H 09/03/19 14:59 103 H 155/93 H 98 09/03/19 14:54 99 H 98 09/03/19 14:51 107 H 93 09/03/19 14:49 99 H 99 09/03/19 14:44 91 H 100 09/03/19 14:40 98 H 93 09/03/19 14:39 99 H 99 09/03/19 14:34 100 H 98 09/03/19 14:32 36.6 C 09/03/19 14:29 99 H 99 09/03/19 14:09 87 118/75 09/03/19 13:06 82 117/60 09/03/19 12:20 85 107/67 09/03/19 11:15 36.4 C L 88 20 127/68 09/03/19 11:14 88 127/68 09/03/19 10:08 83 117/82 09/03/19 09:07 87 122/68 Coding Level of Care Code None Diagnoses Pulmonary embolism affecting , antepartum O88.219
--- NOTE | 2019-09-03 22:05 | Labor Progress Brief Note ---
Date of Service September 03, 2019 Subjective comfortable, noting some contractions Assessment & Plan (1) Pulmonary embolism affecting , antepartum: Making nice progress. continue current progress. Fetus overall reassuring, category two. Physical Exam Constitutional: WD/WN, vitals as above Psychiatric: A+Ox3, euthymic affect Genitourinary: cx--8/100/0 toco--q2-3min efm--120s with mod variability, accels to 150s, variables with some contractions Results & Data Vital Signs (Past 12 Hours) Vital Signs Temp Pulse Resp BP Pulse Ox 09/03/19 22:02 91 H 94 09/03/19 21:59 84 98 09/03/19 21:55 80 119/59 L 09/03/19 21:54 78 99 09/03/19 21:49 82 97 09/03/19 21:44 81 97 09/03/19 21:39 83 122/66 97 09/03/19 21:34 79 97 09/03/19 21:30 18 09/03/19 21:29 80 99 09/03/19 21:25 93 H 94 09/03/19 21:24 87 118/63 95 09/03/19 21:19 86 94 09/03/19 21:16 88 94 09/03/19 21:14 81 98 09/03/19 21:10 36.5 C 09/03/19 21:09 87 125/76 99 09/03/19 21:04 82 100 09/03/19 21:00 18 09/03/19 20:59 82 98 09/03/19 20:55 83 114/56 L 09/03/19 20:54 81 99 09/03/19 20:53 79 94 09/03/19 20:49 73 95 09/03/19 20:44 75 97 09/03/19 20:39 82 113/62 98 09/03/19 20:34 81 97 09/03/19 20:30 18 09/03/19 20:29 82 99 09/03/19 20:25 69 117/59 L 09/03/19 20:24 70 99 09/03/19 20:19 72 98 09/03/19 20:14 71 97 09/03/19 20:12 89 93 09/03/19 20:10 76 116/57 L 09/03/19 20:09 76 99 09/03/19 20:04 71 99 09/03/19 20:00 18 09/03/19 19:59 71 99 09/03/19 19:55 74 119/67 09/03/19 19:54 73 98 09/03/19 19:49 79 98 09/03/19 19:44 80 98 09/03/19 19:40 85 113/65 09/03/19 19:39 79 98 09/03/19 19:34 77 99 09/03/19 19:30 18 09/03/19 19:29 88 95 09/03/19 19:24 81 113/61 98 09/03/19 19:23 36.5 C 18 09/03/19 19:19 70 100 09/03/19 19:14 85 98 09/03/19 19:09 86 114/62 98 09/03/19 19:04 76 99 09/03/19 18:59 81 99 09/03/19 18:58 85 94 09/03/19 18:54 76 110/64 99 09/03/19 18:49 74 99 09/03/19 18:47 87 88 L 09/03/19 18:46 20 09/03/19 18:44 71 100 09/03/19 18:41 73 119/62 09/03/19 18:39 78 100 09/03/19 18:34 72 100 09/03/19 18:29 73 100 09/03/19 18:24 69 111/60 100 09/03/19 18:19 75 99 09/03/19 18:16 20 09/03/19 18:14 83 100 09/03/19 18:09 75 100 09/03/19 18:08 70 118/63 09/03/19 18:04 83 100 09/03/19 18:03 71 115/61 09/03/19 18:02 36.7 C 09/03/19 18:00 73 113/60 09/03/19 17:59 74 99 09/03/19 17:56 77 131/63 09/03/19 17:54 81 99 09/03/19 17:50 71 111/75 09/03/19 17:49 83 99 09/03/19 17:46 20 09/03/19 17:44 76 115/61 97 09/03/19 17:41 84 93 09/03/19 17:40 72 113/60 09/03/19 17:39 73 100 09/03/19 17:35 77 119/61 09/03/19 17:34 76 98 09/03/19 17:29 75 100 09/03/19 17:28 88 105/64 09/03/19 17:24 93 H 99 09/03/19 17:23 82 102/55 L 09/03/19 17:19 79 107/57 L 100 09/03/19 17:16 20 09/03/19 17:14 87 118/60 99 09/03/19 17:09 85 97 09/03/19 17:08 85 120/68 09/03/19 17:04 70 97 09/03/19 17:03 72 118/65 09/03/19 16:59 72 99 09/03/19 16:58 82 116/63 09/03/19 16:57 81 94 09/03/19 16:54 75 99 09/03/19 16:53 74 119/58 L 09/03/19 16:50 80 116/63 09/03/19 16:49 77 99 09/03/19 16:46 36.6 C 20 09/03/19 16:44 82 20 99 09/03/19 16:43 85 114/65 09/03/19 16:39 76 98 09/03/19 16:38 79 122/62 09/03/19 16:34 81 121/67 98 09/03/19 16:29 78 116/61 97 09/03/19 16:24 84 100 09/03/19 16:23 77 116/57 L 09/03/19 16:19 82 97 09/03/19 16:18 85 124/65 09/03/19 16:16 20 09/03/19 16:14 81 98 09/03/19 16:13 81 130/69 09/03/19 16:10 79 128/79 09/03/19 16:09 79 100 09/03/19 16:05 83 127/74 09/03/19 16:04 82 100 09/03/19 15:59 94 H 100 09/03/19 15:58 77 129/70 09/03/19 15:54 78 130/67 97 09/03/19 15:49 75 131/72 96 09/03/19 15:46 20 09/03/19 15:44 76 97 09/03/19 15:43 79 133/76 09/03/19 15:39 81 97 09/03/19 15:38 80 131/74 09/03/19 15:35 97 H 94 09/03/19 15:34 84 132/67 96 09/03/19 15:31 20 09/03/19 15:29 82 100 09/03/19 15:28 81 149/71 H 09/03/19 15:24 78 99 09/03/19 15:23 81 147/71 H 09/03/19 15:21 91 H 142/77 H 09/03/19 15:19 85 144/80 H 100 09/03/19 15:17 78 146/83 H 09/03/19 15:16 20 09/03/19 15:15 78 143/85 H 09/03/19 15:14 81 99 09/03/19 15:13 72 137/84 09/03/19 15:11 75 125/72 09/03/19 15:09 76 89/54 L 99 09/03/19 15:07 76 112/56 L 09/03/19 15:05 85 143/64 H 09/03/19 15:04 67 98 09/03/19 15:03 125 H 142/73 H 09/03/19 15:01 100 H 143/90 H 09/03/19 14:59 103 H 155/93 H 98 09/03/19 14:54 99 H 98 09/03/19 14:51 107 H 93 09/03/19 14:49 99 H 99 09/03/19 14:44 91 H 100 09/03/19 14:40 98 H 93 09/03/19 14:39 99 H 99 09/03/19 14:34 100 H 98 09/03/19 14:32 36.6 C 09/03/19 14:29 99 H 99 09/03/19 14:09 87 118/75 09/03/19 13:06 82 117/60 09/03/19 12:20 85 107/67 09/03/19 11:15 36.4 C L 88 20 127/68 09/03/19 11:14 88 127/68 09/03/19 10:08 83 117/82 Coding Level of Care Code None Diagnoses Pulmonary embolism affecting , antepartum O88.219
[2019-09-04] MEDS: PENICILLIN G POTASSIUM 3 MU in DEXTROSE 5% 100 ML IV PRN (01:17)
[2019-09-04] MEDS ORDERED: IBUPROFEN 600 MG TAB PO PRN (02:42)
[2019-09-04] MEDS ORDERED: OXYCODONE/ACETAMINOPHEN 5mg/325mg TAB PO PRN (02:42)
--- NOTE | 2019-09-04 02:45 | Delivery Summary ---
Vaginal Delivery Summary Date of Service September 04, 2019 Vaginal Delivery Summary Pre-operative Diagnosis: at 39 weeks morbid obesity hx of dvt/pe Post-operative Diagnosis: same Procedure: pitocin induction epidural arom first degree laceration and repair EBL: 350cc Anesthesia: epidural Procedure: The patient pushed for a few contractions to deliver a viable female in andres position. The rest of the infant was then delivered without difficulty. The baby was vigorous. The nose and mouth were again bulb suctioned and the was placed in the maternal abdomen for drying and attention. Cord was clamped and cut at prior to placing on the abdomen as it was short. Cord blood obtained. Placenta delivered spontaneous, intact with a three vessel cord. Cervix/sulci/rectum were intact. A first degree perineal laceration was repaired in the normal standard fashion. Hemostasis obtained with dilute pitocin and fundal massage. Apgars were pending. Mother and baby doing well at the end of the delivery.
[2019-09-04] MEDS ORDERED: OXYTOCIN 30 UNITS/500 ML BAG IV PRN (03:07)
[2019-09-04] MEDS ORDERED: SUPERCREAM 0.870% 15 GM JAR EXT PRN (03:07)
[2019-09-04] MEDS ORDERED: bisacodyL 10 MG SUPP PR PRN (03:07)
[2019-09-04] MEDS ORDERED: BENZOCAINE 20% AER SPR 82.5 GM CAN EXT PRN (03:07)
[2019-09-04] MEDS ORDERED: DIPHTHERIA/TETANUS/PERTUSSIS 0.5 ML SYR/VIAL IM ONE (03:07)
[2019-09-04] MEDS ORDERED: HYDROCORTISONE ACETATE 25 MG SUPP PR PRN (03:07)
[2019-09-04] MEDS: ACETAMINOPHEN 325 MG TAB PO PRN ×3 (05:51→21:09)
[2019-09-04] MEDS: DOCUSATE SODIUM 100 MG CAP PO SCH ×2 (08:49→21:09)
[2019-09-04] MEDS: ENOXAPARIN INJ 40 MG/0.4 ML SYR SQ SCH (08:49)
[2019-09-04] MEDS: PRENATAL VITAMIN 1 TAB PO SCH (08:49)
[2019-09-04] MEDS: PANTOprazole 40 MG TAB PO SCH (09:34)
[2019-09-04] MEDS: FAMOTIDINE 40 MG TABLET PO SCH (09:34)
--- NOTE | 2019-09-04 11:53 | Communication Note ---
Date of Service: September 04, 2019 Called to remove epidural catheter this morning after delivery overnight. The patient was dosed with subcutaneous lovenox this morning at 9am. We need to wait at least 12 hours after lovenox to pull catheter. We will return to remove the catheter after 9pm tonight.
--- NOTE | 2019-09-04 22:16 | Anesthesia Procedure Note ---
Date of Service September 04, 2019 Anesthesia Post Epidural Note Vital Signs Vital Signs: Temp Pulse Resp BP Pulse Ox 36.8 C 83 20 123/72 98 09/04/19 19:50 09/04/19 19:50 09/04/19 19:50 09/04/19 19:50 09/04/19 08:55 Pain Intensity Bilateral Abdomen: Pain Intensity: 4 Bilateral Episiotomy/Laceration: Pain Intensity: 4 Notes Mental Status: alert / awake / arousable and participated in evaluation Nausea / Vomiting: adequately controlled Pain: adequately controlled Airway Patency, RR, SpO2: stable & adequate BP & HR: stable & adequate Hydration State: stable & adequate Neuraxial Anesthesia: was administered and sensory block is resolving Anesthetic Complications: no major complications apparent and Pt Satisfied with anesthetic care Epidural: Removed without complications and With tip intact Notes: The patient was given Lovenox 40 mg SC this AM at 0849. Due to anticoagulation guidelines, she had to wait 12 hours until the epidural was pulled. The epidural was pulled at 2210. She must wait at least 4 hours until her next dose but isn't scheduled to receive Lovenox until the morning so should be fine. She was counseled to let her nurse know or go to the ER immediately with any new onset of lower extremity weakness or incontinence. She will monitor for fever and back tenderness.
[2019-09-05] MEDS: ACETAMINOPHEN 325 MG TAB PO PRN (04:05)
[2019-09-05 07:15] LABS: Hematocrit (blood only) 31.2 % (37-47); Hemoglobin 10.1 g/dL (12.0-16.0)
--- NOTE | 2019-09-05 07:24 | Obstetrical Progress Note ---
Date of Service September 05, 2019 Assessment & Plan (1) History of pulmonary embolism: PPD#1. H/o DVT and PE - plans for Lovenox 40mg for 6w PP. Overnight, had a panic attack. Had difficulty breathing and chest pain, this has now resolved and vitals are normal. Has left LE pain - exam normal. Is very worried she could have another DVT, as her prior symptoms were vague. Will obtain bilateral dopplers to r/o. If wnl/stable, ok to DC home. (2) Supervision of elderly multigravida: Subjective Ambulation: ambulating normally Voiding: no voiding problems Diet Tolerance:: regular diet Lochia:: Moderate Review of Systems All systems reviewed & are unremarkable except as noted in HPI & below Physical Exam Constitutional WD/WN, vitals as above no acute distress Respiratory normal respiratory effort Cardiovascular Rate/Rhythm: regular rate and regular rhythm Gastrointestinal (Abdomen) Inspection/Auscultation: abdomen normal to inspection; abdomen not distended Percussion/Palpation: abdomen soft Genitourinary OB Exam Abdomen: + fundal height Fundus: + firm; not tender Results & Data Vital Signs (Past 12 Hours) Vital Signs Temp Pulse Resp BP Pulse Ox 09/04/19 23:45 36.8 C 80 18 100/66 96 09/04/19 19:50 36.8 C 83 20 123/72
[2019-09-05] MEDS: FAMOTIDINE 40 MG TABLET PO SCH (07:39)
[2019-09-05] MEDS: PANTOprazole 40 MG TAB PO SCH (07:39)
--- NOTE | 2019-09-05 09:17 | Ultrasound Report ---
BILATERAL LOWER EXTREMITY VENOUS DOPPLER CLINICAL HISTORY: r/o DVT () COMPARISON STUDY: Bilateral lower extremity venous Doppler ultrasound January 22, 2019. TECHNIQUE: Sonography of the deep venous system of the bilateral lower extremities was performed. Co mpression and augmentation were evaluated. FINDINGS: The bilateral common femoral, superficial femoral and popliteal veins were compressible. A ugmentation was normal. Flow was shown within the deep calf vessels. Note is made of thrombus within varicosities of the bilateral lateral thighs. IMPRESSION: 1. No evidence of deep venous thrombus within the bilateral lower extremities. 2. Superficial thrombus within varicosities of the bilateral lateral thighs. ACT 112: Negative or not required by law. Electronically signed by: Ang Robertson M.D. 09/05/2019 9:15 AM
[2019-09-05] MEDS: DOCUSATE SODIUM 100 MG CAP PO SCH (10:01)
[2019-09-05] MEDS: ENOXAPARIN INJ 40 MG/0.4 ML SYR SQ SCH (10:02)
[2019-09-05] MEDS: PRENATAL VITAMIN 1 TAB PO SCH (10:02)
--- NOTE | 2019-09-05 10:14 | Obstetrical Progress Note ---
Date of Service September 05, 2019 Subjective Update after doppler: LE doppler negative for DVT. I discussed with patient. She is asymptomatic, feeling well, wants to go home, feels quite relieved at the negative results. Followup in office PP 6w. Results & Data Vital Signs (Past 12 Hours) Vital Signs Temp Pulse Resp BP Pulse Ox 09/04/19 23:45 36.8 C 80 18 100/66 96 PG Care Time/CCT Total # of Minutes Spent Total Time Spent with Patient: Total time spent is greater than 50% in coordination of care (as documented) at patient's floor/unit and/or counseling patient: Coding Level of Care Code None
[2019-09-05] MEDS ORDERED: bisacodyL 5 MG TABEC PO SCH (20:00)
== END 2019-09-05 13:45 | disposition home or self-care (01) | DRG 807 ==
LOC: 4S1 07:39 → 4S2 09-04 05:40

== ENCOUNTER 2019-09-10 13:59 | Inpatient (IN) ==
[2019-09-10 14:55] LABS: Basophils # (auto) 0.02 K/uL (0-0.2); Basophils % (auto) 0.2 %; Eosinophils # (auto) 0.11 K/uL (0-0.5); Eosinophils % (auto) 1.1 %; Hematocrit (blood only) 35.7 % (37-47); Hemoglobin 11.6 g/dL (12.0-16.0); Immature Granulocytes # (auto) 0.15 K/uL (0.00-0.02); Immature Granulocytes % (auto) 1.5 %; Lymphocytes % (auto) 17.4 %; Mean Corpuscular Hgb Conc 32.5 g/dL (32-36); Mean Corpuscular Volume 89.3 fL (80-100); Mean Platelet Volume 9.7 fL (7.4-10.4); Monocytes # (auto) 0.64 K/uL (0.11-0.59); Monocytes % (auto) 6.2 %; Neutrophils # (auto) 7.62 K/uL (1.4-6.5); Neutrophils % (auto) 73.6 %; Platelet Count 244 K/uL (130-400); RDW Coefficient of Variation 14.7 % (11.5-14.5); RDW Standard Deviation 47.6 fL (36.4-46.3); White Blood Count 10.34 K/uL (4.8-10.8)
[2019-09-10 15:03] LABS: INR 0.9 (0.9-1.1); Partial Thromboplastin Ratio 0.9; Partial Thromboplastin Time 24.8 Seconds (21.0-31.0)
[2019-09-10 15:04] LABS: Alanine Aminotransferase 41 U/L (12-78); Albumin Level 2.7 gm/dl (3.4-5.0); Aspartate Aminotransferase 20 U/L (15-37); BUN Creatinine Ratio 19.6 (10-20); Blood Urea Nitrogen 14 mg/dl (7-18); Calcium 8.8 mg/dl (8.5-10.1); Carbon Dioxide 27 mmol/L (21-32); Chloride 105 mmol/L (98-107); Est GFR (African American) 124.7; Est GFR (Non-African American) 107.6; Glucose 84 mg/dl (70-99); Potassium 4.1 mmol/L (3.5-5.1); Sodium 139 mmol/L (136-145)
[2019-09-10 15:08] LABS: Albumin Globulin Ratio 0.7 (0.9-2); Alkaline Phosphatase 87 U/L (45-117); Bilirubin,Total 0.3 mg/dl (0.2-1); Total Protein 6.7 gm/dl (6.4-8.2); Troponin I < 0.015 ng/ml (0-0.045)
--- NOTE | 2019-09-10 15:11 | Emergency Department Note ---
ED Visit Note I contributed to the care of this patient under the supervision of . See his note for full documentation. . Resident Activity Tracking Resident Involvement: Resident Care Provided Care Provided: Adult ED
[2019-09-10] MEDS ORDERED: OPTIRAY 320 125ml IV PRN (15:41)
[2019-09-10] MEDS ORDERED: SODIUM CHLORIDE 0.9% 1000ML 1,000 ML IV ONE (15:46)
--- NOTE | 2019-09-10 15:48 | Emergency Department Note ---
Impression & Plan Pulmonary emboli, state, Acute dyspnea, History of pulmonary embolism, History of deep venous thrombosis ED Provider Note NAME: IRVING Bermudez MINOR AGE: 43 SEX: F ARRIVES VIA: Walk-In INFORMANT: Patient, ED PROVIDER(S): Brayden Ball MD CHIEF COMPLAINT: Shortness of breath PLAN: Disposition: Admit MEDICAL DECISION MAKING: The patient is a 43-year-old woman with a past medical history of DVT PE provoked due to NuvaRing and then by who presents emergency department with acute chest pain in the setting of being 4 days with a recent diagnosis of superficial venous thrombosis on prophylactic Lovenox. The patient reports returning home for uncomplicated vaginal delivery when she developed mild substernal dull achy pain that increases with deep inspiration. She also feels that she has additional pain in the middle of her back below her shoulder blades but this does not penetrate through her chest to her back. She does have shortness of breath with exertion and going up stairs more than her baseline. She denies any shortness of breath at rest. She denies any radiation of her chest pain. She denies any lightheadedness, dizziness, near syncope or syncope. Also denies any fevers, chills, cough, congestion, nausea, vomiting, diarrhea, urinary symptoms. She denies any high risk travel or exposures to individuals known to be diagnosed with COVID-19. Patient's first pulmonary emboli was in 2013 when she was on the NuvaRing. Her second pulmonary embolism was in 2018 and provoked due to her . Both pulmonary embolisms were accompanied by DVTs. She was initially treated with Doac but converted to warfarin and had followed with Dr. Galvan. She now follows with Dr. Garduno. She completed treatment and was not on indefinite anticoagulation due to provoked nature of her thromboses. For her current the patient initially was on 40 mg daily but secondary to her weight gain during this was increased to 40 mg twice daily until she was converted to heparin 5000 units twice daily in the antepartum period. Following her uncomplicated vaginal delivery she was placed on Lovenox 40 mg daily with plan to continue for 6 weeks. Note, she has previously been evaluated for hyper coagulability but this has been negative. On arrival the patient is no acute distress, afebrile with heart rate in the 90s-100s with elevated blood pressure 140-150s/90s-100, saturating 98% on room air. On exam patient appears clinically dry. Lungs are relatively clear. Does have bilateral upper thigh varicosities consistent with the patient's recently diagnosed superficial venous thromboses. EKG demonstrates sinus tachycardia without overt acute ischemia. There is no S1Q3T3 present. WBC and platelets within normal limits. H/H 11.6/35.7 within prior range of values. Chemistry without acidosis. Electrolytes and LFTs unremarkable. Troponin negative/undetectable. UA with blood however in setting of the patient's lochia which she reports is resolving appropriately. CTA of the chest was performed and did demonstrate extensive bilateral pulmonary emboli with thrombus present in the distal right main pulmonary artery as well as in the middle and lower lobe pulmonary arteries extending to the segmental and subsegmental branches. Patient of left-sided segmental and subsegmental pulmonary emboli are noted., Given the patient's acute PE in the setting of her current status reasonable to admit the patient for therapeutic anticoagulation and monitoring. The patient is agreeable to this. The patient denies any history of GI bleeding and reports her lochia the setting of is resolving as to be expected. Therefore we will treat with therapeutic Lovenox. Resident, Dr. Edwards, discussed case with Dr. Botello, [facility] hospitalist, who will evaluate the patient for admission. This patient was managed with the assistance of resident, Dr. Edwards. I discu ssed the case with the resident, examined the patient, and confirm the findings and plan as documented in this note. Triage Nursing notes reviewed and agree them. Prior medical records reviewed Vital Signs: reviewed and remarkable for no significant abnormalities Differential diagnosis: Reactive airway disease, pneumonia, pneumothorax, COPD, CHF, infections, cardiac ischemia, pulmonary embolism, musculoskeletal, gastrointestinal, as well as other pathologies. ER treatment provided: See below. Diagnostics interpreted by me: ECG: Sinus tachycardia, 102, normal axis, no ectopy, no overt ST elevation or depression, QTC 411, QRS 76. S1Q3T3 is not present. Cardiac Monitoring: An order for continuous cardiac monitoring was placed and demonstrated tachycardia, 102, no ectopy. Laboratory studies: See below Imaging studies: CT ANGIOGRAM OF THE CHEST CLINICAL HISTORY: Dyspnea. Atypical chest pain. COMPARISON STUDY: Chest CT scans dated 06/09/2018 and 04/08/2017. TECHNIQUE: Following the IV administration of 119 cc of Optiray 320, CT angiogram of the chest was performed from the upper abdomen to the thoracic inlet utilizing the pulmonary embolus protocol. Images are reviewed in the axial, sagittal, and coronal planes. 3-D MIPS images are created and assessed. IV contrast was administered without complication. A dose lowering technique was utilized adhering to the principles of ALARA. The examination is degraded by large body habitus, and by streak artifact from the body wall abutting the CT gantry. CT DOSE: 844.13 mGy.cm FINDINGS: Thyroid: Imaged portions of the thyroid gland are normal in size and attenuation. Thoracic aorta: The thoracic aorta is normal in caliber and demonstrates standard 3-vessel arch anatomy. No dissection is seen. Pulmonary vasculature: The pulmonary trunk is normal in caliber. Thrombus is present within the distal right main pulmonary artery. There is pulmonary embolus identified within the right middle and lower lobe pulmonary arteries which extend into segmental and subsegmental branches. Subsegmental pulmonary emboli are seen in the right upper lobe. There is also pulmonary embolus within segmental and subsegmental branches of the left lower lobe pulmonary artery. Heart: The heart is normal in size and configuration, and without pericardial effusion. Lungs and pleural spaces: Evaluation of the lung parenchyma is modestly degraded by motion artifact. No airspace consolidation or pleural effusion is identified. The trachea and central airways are clear. Mediastinum: There is no mediastinal lymphadenopathy. Lu: Clear. Axillae: There is no axillary lymphadenopathy. Upper abdomen: Postoperative change is noted in the stomach. Partially visualized upper abdominal viscera is otherwise grossly unremarkable. Skeletal structures: No lytic or blastic bony lesions are seen. IMPRESSION: 1. Extensive bilateral pulmonary emboli as above. 2. The lungs are clear. Consultation(s): Resident, Dr. Edwards, discussed case with Dr. Botello, [facility] hospitalist, who will evaluate the patient for admission. HPI: The patient is a 43-year-old woman with a past medical history of DVT PE provoked due to NuvaRing and then by who presents emergency department with acute chest pain in the setting of being 4 days with a recent diagnosis of superficial venous thrombosis on prophylactic Lovenox. The patient reports returning home for uncomplicated vaginal delivery when she developed mild substernal dull achy pain that increases with deep inspiration. She also feels that she has additional pain in the middle of her back below her shoulder blades but this does not penetrate through her chest to her back. She does have shortness of breath with exertion and going up stairs more than her baseline. She denies any shortness of breath at rest. She denies any radiation of her chest pain. She denies any lightheadedness, dizziness, near syncope or syncope. Also denies any fevers, chills, cough, congestion, nausea, vomiting, diarrhea, urinary symptoms. She denies any high risk travel or exposures to individuals known to be diagnosed with COVID-19. Patient's first pulmonary emboli was in 2013 when she was on the NuvaRing. Her second pulmonary embolism was in 2018 and provoked due to her . Both pulmonary embolisms were accompanied by DVTs. She was initially treated with Doac but converted to warfarin and had followed with Dr. Galvan. She now follows with Dr. Garduno. She completed treatment and was not on indefinite anticoagulation due to provoked nature of her thromboses. For her current the patient initially was on 40 mg daily but secondary to her weight gain during this was increased to 40 mg twice daily until she was converted to heparin 5000 units twice daily in the antepartum period. Following her uncomplicated vaginal delivery she was placed on Lovenox 40 mg daily with plan to continue for 6 weeks. Note, she has previously been evaluated for hyper coagulability but this has been negative. ROS: See above HPI for pertinent positives & negatives. A total of 10 systems reviewed and were otherwise negative. PAST MEDICAL HISTORY:See Below PAST SURGICAL HISTORY:See Below FAMILY HISTORY:See Below SOCIAL HISTORY:See Below HOME MEDICATIONS:See Below ALLERGIES:See Below VITALS:See Below PHYSICAL EXAMINATION: GENERAL: Awake, alert, Mildly dyspneic-appearing, in no distress HENT: Normocephalic, atraumatic. Oropharynx with dry mucous membranes and otherwise unremarkable. EYES: Normal conjunctiva. Sclera non-icteric. NECK: Supple. No nuchal rigidity. FROM. No JVD. RESPIRATORY: Clear to auscultation. CARDIAC: Tachycardic rate, normal rhythm. Extremities warm and well perfused. Pulses equal. ABDOMEN: Soft, non-distended. No tenderness to palpation. No rebound or guarding. No masses. RECTAL: Deferred. MUSCULOSKELETAL: Chest examination reveals no tenderness. The back is symmetrical on inspection without obvious abnormality. There is no CVA tenderness to palpation. No joint edema. LOWER EXTREMITIES: Calves are equal size bilaterally and non-tender. No edema. No discoloration. Bilateral upper thigh varicosities consistent with the patient's recently diagnosed superficial venous thromboses. NEURO: Normal sensorium. No sensory or motor deficits noted. SKIN: No rash or jaundice noted. ED COURSE: Critical Care: I have personally spent greater than 65 minutes of critical care time in the d irect management of this patient. This includes bedside care, interpretation of diagnostic studies, and testing, discussion with consultants, patient, and family members, and other required patient management activities. This 65 minutes is in excess of all separately billable procedures. Brayden Ball MD Past Med/Surg History Medical History 39 weeks gestation of Acid reflux (Chronic) Anemia Anxiety Chronic back pain DVT (deep venous thrombosis) 06/2017 - post- Hypertension (Resolved) PT DENIES Iron deficiency anemia Pulmonary embolism JUNE 2017 - post- Varicella Surgical History H/O laparoscopic partial gastrectomy S/P partial gastrectomy (Chronic) S/P wisdom tooth extraction Family History Mother Breast cancer Father Deep vein thrombosis occurred about the time of Glioblastoma Glioblastoma multiforme Social History Preferred Language: Slovak Communication Ability: Effective Stripper Black And White Required: No Beliefs That Will Affect Care: None marital status: marital status details: Stef Mishra (48) [phone] Current Living Situation: Spouse Current Living Situation Comment: and son/daughter in [place] current occupational status: employed 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) Other Information That Helps Us Care for You: No Feels Safe at Home: Yes Safety Concerns: Feels Safe At This Time Smoking Status: Never smoker Do You Dip or Chew Tobacco: No ; Second Hand Exposure: No ; Tobacco Cessation Education Requested by Patient: No Hx Alcohol Use: No Hx Substance Use: No Allergies Allergies Allergy/AdvReac Type Severity Reaction Status Date / Time bupropion Allergy Severe Hives Verified 09/03/19 08:25 Home Meds Home Medications Medication Instructions Recorded Confirmed pantoprazole [Protonix] 40 mg PO QAM 02/26/18 09/10/19 PNV cmb#95-ferrous fumarate-FA 1 tab PO DAILY 01/22/19 09/10/19 [] alprazolam [Xanax] 0.25 - 0.5 mg PO TID PRN 09/10/19 09/10/19 famotidine [Pepcid] 20 mg PO DAILY 09/10/19 09/10/19 Previous Rx's Medication Instructions Recorded enoxaparin 40 mg SUBCUT QAM #4 ml 09/05/19 Results & Data (ED) Vital Signs Vital Signs - 24 hr 09/10/19 14:07 09/10/19 14:11 09/10/19 14:30 Temperature 36.9 C Temperature Source Oral Pulse Rate 96 H 92 H 94 H Pulse Rate from SpO2 Sensor 95 H 93 H Pulse Rhythm Regular Pulse Strength Normal Respiratory Rate 17 20 17 Respiratory Effort / Characteristics Non-Labored Spontaneous Respiratory Depth Normal Respiratory Pattern Regular Blood Pressure 155/100 H Blood Pressure Mean 112 Pulse Oximetry 97 96 Oxygen Delivery Method Room Air Sepsis Recent Fever Within 48 Hours No Sepsis Action Taken by Nursing No Action Required 09/10/19 15:00 09/10/19 15:32 09/10/19 16:00 Temperature Temperature Source Pulse Rate 93 H 71 Pulse Rate from SpO2 Sensor 71 Pulse Rhythm Regular Pulse Strength Respiratory Rate 22 29 H 17 Respiratory Effort / Characteristics Respiratory Depth Respiratory Pattern Blood Pressure 142/98 H Blood Pressure Mean 107 Pulse Oximetry 100 Oxygen Delivery Method Room Air Sepsis Recent Fever Within 48 Hours Sepsis Action Taken by Nursing 09/10/19 16:30 Temperature Temperature Source Pulse Rate 66 Pulse Rate from SpO2 Sensor Pulse Rhythm Pulse Strength Respiratory Rate 19 Respiratory Effort / Characteristics Respiratory Depth Respiratory Pattern Blood Pressure Blood Pressure Mean Pulse Oximetry Oxygen Delivery Method Sepsis Recent Fever Within 48 Hours Sepsis Action Taken by Nursing Laboratory Data Attestation: I reviewed the patient's lab results. Result diagrams: 09/10/19 14:20 09/10/19 14:20 Lab Results 09/10/19 09/10/19 09/10/19 Range/Units 14:20 14:20 14:20 WBC 10.34 (4.8-10.8) K/uL RBC 4.00 L (4.2-5.4) M/uL Hgb 11.6 L (12.0-16.0) g/dL Hct 35.7 L (37-47) % MCV 89.3 (80-100) fL MCH 29.0 (25-34) pg MCHC 32.5 (32-36) g/dL RDW Std Deviation 47.6 H (36.4-46.3) fL RDW Coeff of Tayler 14.7 H (11.5-14.5) % Plt Count 244 (130-400) K/uL MPV 9.7 (7.4-10.4) fL Immature Gran % (Auto) 1.5 % Neut % (Auto) 73.6 % Lymph % (Auto) 17.4 % [place] % (Auto) 6.2 % Eos % (Auto) 1.1 % Baso % (Auto) 0.2 % Immature Gran # (Auto) 0.15 H (0.00-0.02) K/uL Neut # (Auto) 7.62 H (1.4-6.5) K/uL Lymph # (Auto) 1.80 (1.2-3.4) K/uL [place] # (Auto) 0.64 H (0.11-0.59) K/uL Eos # (Auto) 0.11 (0-0.5) K/uL Baso # (Auto) 0.02 (0-0.2) K/uL PT 10.0 (9.0-12.0) Seconds INR 0.9 (0.9-1.1) APTT 24.8 (21.0-31.0) Seconds PTT Ratio 0.9 Sodium 139 (136-145) mmol/L Potassium 4.1 (3.5-5.1) mmol/L Chloride 105 (98-107) mmol/L Carbon Dioxide 27 (21-32) mmol/L Anion Gap 6.0 (3-11) BUN 14 (7-18) mg/dl Creatinine 0.70 (0.6-1.2) mg/dl Est Cr Clr Drug Dosing 150.0 ml/min Est GFR ( Amer) 124.7 Est GFR (Non-Af Amer) 107.6 BUN/Creatinine Ratio 19.6 (10-20) Glucose 84 (70-99) mg/dl Calcium 8.8 (8.5-10.1) mg/dl Total Bilirubin 0.3 (0.2-1) mg/dl AST 20 (15-37) U/L ALT 41 (12-78) U/L Alkaline Phosphatase 87 (45-117) U/L POC Troponin I (0-0.045) ng/ml Troponin I < 0.015 (0-0.045) ng/ml Total Protein 6.7 (6.4-8.2) gm/dl Albumin 2.7 L (3.4-5.0) gm/dl Globulin 4.0 (2.5-4.0) gm/dl Albumin/Globulin Ratio 0.7 L (0.9-2) Urine Color Urine Appearance (Clear) Urine pH (4.5-7.5) Ur Specific [place] (1.000-1.030) Urine Protein (Negative) Urine Glucose (UA) (Negative) Urine Ketones (Negative) Urine Blood (Negative) Urine Nitrite (Negative) Urine Bilirubin (Negative) Urine Urobilinogen (Negative) Ur Leukocyte Esterase (Negative) Urine RBC (0-4) /hpf Urine WBC (0-5) /hpf Ur Epithelial Cells (0-5) /lpf Urine Bacteria (Negative) 09/10/19 09/10/19 Range/Units 14:41 15:30 WBC (4.8-10.8) K/uL RBC (4.2-5.4) M/uL Hgb (12.0-16.0) g/dL Hct (37-47) % MCV (80-100) fL MCH (25-34) pg MCHC (32-36) g/dL RDW Std Deviation (36.4-46.3) fL RDW Coeff of Tayler (11.5-14.5) % Plt Count (130-400) K/uL MPV (7.4-10.4) fL Immature Gran % (Auto) % Neut % (Auto) % Lymph % (Auto) % [place] % (Auto) % Eos % (Auto) % Baso % (Auto) % Immature Gran # (Auto) (0.00-0.02) K/uL Neut # (Auto) (1.4-6.5) K/uL Lymph # (Auto) (1.2-3.4) K/uL [place] # (Auto) (0.11-0.59) K/uL Eos # (Auto) (0-0.5) K/uL Baso # (Auto) (0-0.2) K/uL PT (9.0-12.0) Seconds INR (0.9-1.1) APTT (21.0-31.0) Seconds PTT Ratio Sodium (136-145) mmol/L Potassium (3.5-5.1) mmol/L Chloride (98-107) mmol/L Carbon Dioxide (21-32) mmol/L Anion Gap (3-11) BUN (7-18) mg/dl Creatinine (0.6-1.2) mg/dl Est Cr Clr Drug Dosing ml/min Est GFR ( Amer) Est GFR (Non-Af Amer) BUN/Creatinine Ratio (10-20) Glucose (70-99) mg/dl Calcium (8.5-10.1) mg/dl Total Bilirubin (0.2-1) mg/dl AST (15-37) U/L ALT (12-78) U/L Alkaline Phosphatase (45-117) U/L POC Troponin I < 0.03 (0-0.045) ng/ml Troponin I (0-0.045) ng/ml Total Protein (6.4-8.2) gm/dl Albumin (3.4-5.0) gm/dl Globulin (2.5-4.0) gm/dl Albumin/Globulin Ratio (0.9-2) Urine Color Yellow Urine Appearance Cloudy A (Clear) Urine pH 7.0 (4.5-7.5) Ur Specific [place] 1.006 (1.000-1.030) Urine Protein Negative (Negative) Urine Glucose (UA) Negative (Negative) Urine Ketones Negative (Negative) Urine Blood 3+ H (Negative) Urine Nitrite Negative (Negative) Urine Bilirubin Negative (Negative) Urine Urobilinogen Negative (Negative) Ur Leukocyte Esterase Trace H (Negative) Urine RBC 5-10 H (0-4) /hpf Urine WBC 0-5 (0-5) /hpf Ur Epithelial Cells 0-5 (0-5) /lpf Urine Bacteria Negative (Negative) Administered Medications Enoxaparin Sodium (Lovenox) 150 mg SQ Q12H [facility] Stop: 10/10/19 16:29 Last Admin: 09/10/19 17:19 Dose: 150 mg Documented by: [id number] Discontinued Medications Sodium Chloride (Nss 1000ml) 1,000 mls @ 999 mls/hr IV .Q1H1M ONE Stop: 09/10/19 16:46 Last Infusion: 09/10/19 18:46 Dose: 0 mls/hr Documented by: [id number] Admin: 09/10/19 16:30 Dose: 999 mls/hr Documented by: [id number] Ioversol (Optiray 320 125ml) 119 ml IV ONCE PRN PRN Reason: Interaction Checking Stop: 09/14/19 15:40 Last Admin: 09/10/19 15:43 Dose: 119 ml Documented by: [id number] Blood Pressure Blood Pressure Findings: Elevated blood pressure Blood Pressure Disposition: elevated BP felt to be situational Discharge Plan Visit Data *Final* Discharge Date/Time: 09/10/19 17:45 Chief Complaint: Chest Pain Stated Complaint: CHEST PAIN ED Provider: Brayden Ball ED Midlevel Provider: Chin Edwards Discharge Problem: Pulmonary emboli, state, Acute dyspnea, History of pulmonary embolism, History of deep venous thrombosis Patient Disposition: Admitted As Inpatient Discharge Instructions Interventions: ED Discharge Assessment Last Done: 09/10/19 17:45 Discharge Problem: Pulmonary emboli Qualifiers: Pulmonary embolism type: unspecified Chronicity: acute Acute cor pulmonale presence: unspecified Qualified Code(s): I26.99 - Other pulmonary embolism without acute cor pulmonale
[2019-09-10 15:55] LABS: Appearance Urine Cloudy (Clear); Bilirubin Urine Negative (Negative); Blood Urine 3+ (Negative); Color Urine Yellow; Glucose Urine UA Negative (Negative); Ketones Urine Negative (Negative); Leukocyte Esterase Urine Trace (Negative); Nitrite Urine Negative (Negative); Protein Urine Negative (Negative); Specific Gravity Urine 1.006 (1.000-1.030); Urobilinogen Urine Negative (Negative)
--- NOTE | 2019-09-10 15:56 | CT Scan Report ---
CT ANGIOGRAM OF THE CHEST CLINICAL HISTORY: Dyspnea. Atypical chest pain. COMPARISON STUDY: Chest CT scans dated 06/09/2018 and 04/08/2017. TECHNIQUE: Following the IV administration of 119 cc of Optiray 320, CT angiogram of the chest was pe rformed from the upper abdomen to the thoracic inlet utilizing the pulmonary embolus protocol. Images are reviewed in the axial, sagittal, and coronal planes. 3-D MIPS images are created and assessed. I V contrast was administered without complication. A dose lowering technique was utilized adhering to the principles of ALARA. The examination is degraded by large body habitus, and by streak artifact f rom the body wall abutting the CT gantry. CT DOSE: 844.13 mGy.cm FINDINGS: Thyroid: Imaged portions of the thyroid gland are normal in size and attenuation. Thoracic aorta: The thoracic aorta is normal in caliber and demonstrates standard 3-vessel arch anato my. No dissection is seen. Pulmonary vasculature: The pulmonary trunk is normal in caliber. Thrombus is present within the dista l right main pulmonary artery. There is pulmonary embolus identified within the right middle and lowe r lobe pulmonary arteries which extend into segmental and subsegmental branches. Subsegmental pulmona ry emboli are seen in the right upper lobe. There is also pulmonary embolus within segmental and subs egmental branches of the left lower lobe pulmonary artery. Heart: The heart is normal in size and configuration, and without pericardial effusion. Lungs and pleural spaces: Evaluation of the lung parenchyma is modestly degraded by motion artifact. No airspace consolidation or pleural effusion is identified. The trachea and central airways are wm r. Mediastinum: There is no mediastinal lymphadenopathy. Lu: Clear. Axillae: There is no axillary lymphadenopathy. Upper abdomen: Postoperative change is noted in the stomach. Partially visualized upper abdominal vis cera is otherwise grossly unremarkable. Skeletal structures: No lytic or blastic bony lesions are seen. IMPRESSION: 1. Extensive bilateral pulmonary emboli as above. 2. The lungs are clear. Electronically signed by: Carlyel Warner M.D. 09/10/2019 3:54 PM
[2019-09-10 16:12] LABS: Epithelial Cell Urine 0-5 /lpf (0-5)
[2019-09-10 16:13] LABS: Bacteria Urine Negative (Negative); WBC Urine 0-5 /hpf (0-5)
[2019-09-10] MEDS ORDERED: ENOXAPARIN 1 MG/KG SQ SCH (16:15)
--- NOTE | 2019-09-10 16:32 | History & Physical Report ---
Date of Service September 10, 2019 Assessment & Plan (1) Pulmonary emboli: Despite prophylactic lovenox 40mg daily post- unfortunately Mrs Tad has developed another extensive VTE event. Vitals and O2 sats are stable, however. 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 Her last event was also post- in 06/2017 when she had extensive PEs and DVTs. At this point she will need lifelong anticoagulation. Reasonable to use lovenox therapeutic doses 1mg/kg BID (150mg), first dose now. Will use lovenox as bridge with coumadin. Give coumadin 15mg po x 1 now, followed by 10mg on 09/11/19. Of note - her last coumadin dosing regimen in 2018 prior to discontinuation was alternating 10mg with 7.5mg every other day (see anticoagulation clinic notes from 2019). Will obtain dopplers of legs to check for DVT. If negative it is possible that her clots originated in pelvic veins. Check echo to assess right heart function as well as LV function given her recent post- status. Place on telemetry, and repeat routine labs in the am. She is going to think about whether to re-establish care with [facility] anticoagulation clinic or go with [facility] AC clinic. (2) Morbid obesity with BMI of 50.0-59.9, adult: BMI 57 check hemoglobin a1c and TSH in am (3) GERD (gastroesophageal reflux disease): cont PPI and H2 zoie - her usual meds for such (4) Excessive weight gain during , antepartum: check TSH in am check hemoglobin a1c in am (5) Hematuria, microscopic: as seen on u/a likely due to post- lochia (6) S/P partial gastrectomy: should have Fe studies and B12 levels checked as outpatient place on telemetry IVF - 500cc of NS x 1 for [address] of [address] contrast dye diet - AHA d/c - anticipate in 1-2 days depending on pulmonary status, any o2 requirement (with rest or exertion), etc History of Present Illness Chief Complaint: shortness of breath, chest pain Primary Care Provider: Raine Gutierrez DO 43yo female with history of b/l DVTs and b/l PEs post- in June 2017 as well as h/o VTE associated with control usage in 2013 who presents with worsening pleuritic chest pain starting Wednesday of this week along with dyspnea on exertion. She also has had back pain in the mid-thoracic region. She has had the back pain with taking deep breaths. Retrospectively she recalls having some mild dyspnea with exertion for several days prior to the delivery of her daughter last week. At that time she attributed the dyspnea to carrying her yet to be born child as well as the weight she had gained during . Denies any fevers, chills, cough, anorexia, change in taste or smell, sore throat, nasal congestion, rashes, abdominal pain, nausea, vomiting, or diarrhea. Denies LE edema. Due to the chest discomfort and dyspnea and her prior experience with post- PEs she presented to the ER for evaluation. Patient reports she was hospitalized last weekend for the of her daughter. Delivery was early Friday am and she was discharged on 09/05/19. Throughout her , in coordination with Dr Brand [facility], she took prophylactic lovenox 40mg daily. Closer to delivery she was changed to unfractionated heparin, and then post- was placed back on lovenox 40mg SC daily. She has taken the lovenox 40mg daily since hospital discharge. Of note - on 09/05/19 she underwent b/l LE venous dopplers due to calf pain. These showed superficial thrombophlebitis of both thighs only. CTA chest today in the ER showed extensive b/l PEs. Lovenox 1mg/kg was ordered by the ER attending. Anticoagulation clinic records from 2019 show that her last coumadin regimen was 10mg alternating with 7.5mg. Allergies Allergy/AdvReac Type Severity Reaction Status Date / Time bupropion Allergy Severe Hives Verified 09/03/19 08:25 Home Medications Home Medications Medication Instructions Recorded Confirmed Type pantoprazole [Protonix] 40 mg PO QAM 02/26/18 09/10/19 History PNV cmb#95-ferrous fumarate-FA 1 tab PO DAILY 01/22/19 09/10/19 History [] enoxaparin 40 mg SUBCUT QAM #4 ml 09/05/19 09/10/19 Rx alprazolam [Xanax] 0.25 - 0.5 mg PO TID PRN 09/10/19 09/10/19 History famotidine [Pepcid] 20 mg PO DAILY 09/10/19 09/10/19 History Past Med/Surg History Medical History 39 weeks gestation of Acid reflux (Chronic) Anemia Anxiety Chronic back pain DVT (deep venous thrombosis) 06/2017 - post- Hypertension (Resolved) PT DENIES Iron deficiency anemia Pulmonary embolism JUNE 2017 - post- Varicella Surgical History H/O laparoscopic partial gastrectomy S/P partial gastrectomy (Chronic) S/P wisdom tooth extraction Family History Mother Breast cancer Father Deep vein thrombosis occurred about the time of Glioblastoma Glioblastoma multiforme Social History Preferred Language: Czech Communication Ability: Effective [place] Required: No Beliefs That Will Affect Care: None marital status: marital status details: Stef Mishra [phone] Current Living Situation: Spouse Current Living Situation Comment: and son/daughter in [place] current occupational status: employed 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) Other Information That Helps Us Care for You: No Feels Safe at Home: Yes Safety Concerns: Feels Safe At This Time Smoking Status: Never smoker Do You Dip or Chew Tobacco: No ; Second Hand Exposure: No ; Tobacco Cessation Education Requested by Patient: No Hx Alcohol Use: No Hx Substance Use: No Review of Systems Constitutional: no fever, no chills, no fatigue and no anorexia Eyes: no worsening vision Ear, Nose, Mouth, Throat: no nasal congestion, no sore throat and no dysphagia Respiratory: + dyspnea, + dyspnea on exertion and + pain on inspiration; no cough and no hemoptysis Cardiovascular: as per Subjective / HPI, + chest pain and + dyspnea on exertion; no dyspnea at rest and no edema Gastrointestinal: no abdominal pain, no nausea, no vomiting and no diarrhea/loose stools Genitourinary: no dysuria Musculoskeletal: + back pain and + joint pain (right hip ) Integumentary: no rash Neurologic: no loss of sensation Psychiatric: + anxiety (recently received xanax from PCP ) Endocrine: no gestational diabetes Hematologic / Lymphatic: no easy bruising Physical Exam Constitutional: + morbidly obese; no acute distress and no altered mental status Eyes: + anicteric sclerae and PERRL ENMT: external ear and nose normal, oropharynx normal Neck: trachea midline, no thyromegaly Respiratory: normal respiratory effort, lungs clear to auscultation Cardiovascular: Rate/Rhythm: regular rate and regular rhythm Heart Sounds: normal S1 and normal S2; no murmur Vessels: posterior tibial pulses present and dorsalis pedis pulses present; no JVD Extremities: + varicosities (b/l anterior thighs - palpable phlebitis ); no edema Gastrointestinal (Abdomen): normal bowel sounds, soft, nontender, no hepatosplenomegaly Musculoskeletal: no cyanosis or clubbing, extremities motor strength 5/5 Skin: no rashes, warm and dry Neurologic: deep tendon reflexes 2+ bilaterally and moves all extremities Psychiatric: Orientation: alert and oriented x 3 Affect: + tearful affect Lymphatic: no cervical lymphadenopathy Results & Data Results & Data ([facility]) Vital Signs (Past 12 Hours) Vital Signs Temp Pulse Resp BP Pulse Ox 09/10/19 14:07 36.9 C 91 H 20 155/100 H 96 Laboratory Results Laboratory Results - last 24 hr 09/10/19 09/10/19 09/10/19 14:20 14:20 14:20 WBC 10.34 RBC 4.00 L Hgb 11.6 L Hct 35.7 L MCV 89.3 MCH 29.0 MCHC 32.5 RDW Std Deviation 47.6 H RDW Coeff of Tayler 14.7 H Plt Count 244 MPV 9.7 Immature Gran % (Auto) 1.5 Neut % (Auto) 73.6 Lymph % (Auto) 17.4 [place] % (Auto) 6.2 Eos % (Auto) 1.1 Baso % (Auto) 0.2 Immature Gran # (Auto) 0.15 H Neut # (Auto) 7.62 H Lymph # (Auto) 1.80 [place] # (Auto) 0.64 H Eos # (Auto) 0.11 Baso # (Auto) 0.02 PT 10.0 INR 0.9 APTT 24.8 PTT Ratio 0.9 Sodium 139 Potassium 4.1 Chloride 105 Carbon Dioxide 27 Anion Gap 6.0 BUN 14 Creatinine 0.70 Est Cr Clr Drug Dosing 150.0 Est GFR ( Amer) 124.7 Est GFR (Non-Af Amer) 107.6 BUN/Creatinine Ratio 19.6 Glucose 84 Calcium 8.8 Total Bilirubin 0.3 AST 20 ALT 41 Alkaline Phosphatase 87 POC Troponin I Troponin I < 0.015 Total Protein 6.7 Albumin 2.7 L Globulin 4.0 Albumin/Globulin Ratio 0.7 L Urine Color Urine Appearance Urine pH Ur Specific [place] Urine Protein Urine Glucose (UA) Urine Ketones Urine Blood Urine Nitrite Urine Bilirubin Urine Urobilinogen Ur Leukocyte Esterase Urine RBC Urine WBC Ur Epithelial Cells Urine Bacteria 09/10/19 09/10/19 14:41 15:30 WBC RBC Hgb Hct MCV MCH MCHC RDW Std Deviation RDW Coeff of Tayler Plt Count MPV Immature Gran % (Auto) Neut % (Auto) Lymph % (Auto) [place] % (Auto) Eos % (Auto) Baso % (Auto) Immature Gran # (Auto) Neut # (Auto) Lymph # (Auto) [place] # (Auto) Eos # (Auto) Baso # (Auto) PT INR APTT PTT Ratio Sodium Potassium Chloride Carbon Dioxide Anion Gap BUN Creatinine Est Cr Clr Drug Dosing Est GFR ( Amer) Est GFR (Non-Af Amer) BUN/Creatinine Ratio Glucose Calcium Total Bilirubin AST ALT Alkaline Phosphatase POC Troponin I < 0.03 Troponin I Total Protein Albumin Globulin Albumin/Globulin Ratio Urine Color Yellow Urine Appearance Cloudy A Urine pH 7.0 Ur Specific [place] 1.006 Urine Protein Negative Urine Glucose (UA) Negative Urine Ketones Negative Urine Blood 3+ H Urine Nitrite Negative Urine Bilirubin Negative Urine Urobilinogen Negative Ur Leukocyte Esterase Trace H Urine RBC 5-10 H Urine WBC 0-5 Ur Epithelial Cells 0-5 Urine Bacteria Negative Diagnostic Findings CTA chest - IMPRESSION: 1. Extensive bilateral pulmonary emboli as above. 2. The lungs are clear. EKG - my reading - sinus tach, no ST changes Code Status & VTE Plan Code Status full VTE Prophylaxis Plan VTE Prophylaxis will be ordered: Yes PG Care Time/CCT Total # of Minutes Spent Total Time Spent with Patient: Total time spent is greater than 50% in coordination of care (as documented) at patient's floor/unit and/or counseling patient: Coding Level of Care Code 57999 Initial Inpt Care Lvl 3 Diagnoses Pulmonary emboli I26.99 Acute cor pulmonale presence: without acute cor pulmonale Chronicity: acute Pulmonary embolism type: unspecified Morbid obesity with BMI of 50.0-59.9, adult E66.01; Z68.43 GERD (gastroesophageal reflux disease) K21.9 Esophagitis presence: esophagitis presence not specified Excessive weight gain during , antepartum O26.00 Hematuria, microscopic R31.29 S/P partial gastrectomy Z90.3 (1) Pulmonary emboli Acute cor pulmonale presence: without acute cor pulmonale Chronicity: acute Pulmonary embolism type: unspecified Qualified Code(s): I26.99 - Other pulmonary embolism without acute cor pulmonale (2) GERD (gastroesophageal reflux disease) Esophagitis presence: esophagitis presence not specified Qualified Code(s): K21.9 - Gastro-esophageal reflux disease without esophagitis
[2019-09-10] MEDS: ENOXAPARIN 150 MG/ML SYR SQ SCH (17:19)
--- NOTE | 2019-09-10 17:24 | Electrocardiogram Report ---
Test Reason : Blood Pressure : / mmHG Vent. Rate : 102 BPM Atrial Rate : 102 BPM P-R Int : 170 ms QRS Dur : 076 ms QT Int : 316 ms P-R-T Axes : 059 037 040 degrees QTc Int : 411 ms Poor data quality, interpretation may be adversely affected Sinus tachycardia Possible Left atrial enlargement Borderline ECG When compared with ECG of 27-JAN-2019 20:45, No significant change was found Confirmed by Marcelo Easley ([id number]) on 09/10/2019 5:24:21 PM Referred By: Confirmed By:Marcelo Easley
[2019-09-10] MEDS ORDERED: WARFARIN SOD 10 MG TAB PO ONE ×2 (17:27→20:00)
--- NOTE | 2019-09-10 18:30 | Ultrasound Report ---
US venous doppler LE BI CLINICAL HISTORY: History of superficial thrombophlebitis. Varicosities. COMPARISON STUDY: 09/05/2019 FINDINGS: Grayscale, color flow, and spectral Doppler waveform analysis was performed. The deep veins are fully compressible from the groin to the popliteal fossa. There is normal color fl ow within the proximal trifurcation veins of each calf. There is a small left thigh superficial venou s thrombus. This appears smaller than on the prior study. The previously identified superficial throm bus within a right leg vein is no longer visualized IMPRESSION: 1. No evidence of lower extremity DVT 2. Small superficial venous thrombus within the proximal left thigh. ACT 112: Negative or not required by law. Electronically signed by: Gary Hines M.D. 09/10/2019 6:29 PM
[2019-09-10] MEDS ORDERED: SODIUM CHLORIDE 0.9% 500 ML IV SCH (18:43)
[2019-09-10] MEDS ORDERED: ONDANSETRON INJ 2 MG/ML 2 ML VIAL IV PRN (18:43)
[2019-09-10] MEDS ORDERED: WARFARIN SOD 5 MG TAB PO ONE (20:00)
[2019-09-10] MEDS: ACETAMINOPHEN 325 MG TAB PO PRN (20:16)
[2019-09-10] MEDS: ALPRAZolam 0.5 MG TABLET PO PRN (22:02)
[2019-09-11 04:04] LABS: Hematocrit (blood only) 33.3 % (37-47); Hemoglobin 10.8 g/dL (12.0-16.0); Mean Corpuscular Hemoglobin 29.4 pg (25-34); Mean Corpuscular Hgb Conc 32.4 g/dL (32-36); Mean Corpuscular Volume 90.7 fL (80-100); Mean Platelet Volume 9.3 fL (7.4-10.4); Platelet Count 224 K/uL (130-400); RDW Coefficient of Variation 14.9 % (11.5-14.5); RDW Standard Deviation 49.1 fL (36.4-46.3); Red Blood Count 3.67 M/uL (4.2-5.4)
[2019-09-11 04:13] LABS: Prothrombin Time 10.7 Seconds (9.0-12.0)
[2019-09-11 04:31] LABS: BUN Creatinine Ratio 15.7 (10-20); Calcium 8.8 mg/dl (8.5-10.1); Creatinine Clr Calc Pharmacy 131.6 ml/min; Est GFR (African American) 109.4; Est GFR (Non-African American) 94.4; Potassium 4.3 mmol/L (3.5-5.1)
[2019-09-11 04:41] LABS: Thyroid Stimulating Hormone 2.2 uIu/ml (0.300-4.500)
[2019-09-11] MEDS: ENOXAPARIN 150 MG/ML SYR SQ SCH ×2 (04:50→16:44)
[2019-09-11 06:59] LABS: Estimated Average Glucose 117 mg/dl; Hemoglobin A1C 5.7 % (4.5-5.6)
[2019-09-11] MEDS: FAMOTIDINE 20 MG TAB PO SCH (08:18)
[2019-09-11] MEDS: PANTOprazole 40 MG TAB PO SCH (08:18)
[2019-09-11] MEDS: ACETAMINOPHEN 325 MG TAB PO PRN ×3 (08:43→21:59)
--- NOTE | 2019-09-11 08:56 | XCELERA ---
[id number]
--- NOTE | 2019-09-11 13:54 | Hospitalist Progress Note ---
Date of Service September 11, 2019 Assessment & Plan (1) Pulmonary emboli: Despite prophylactic lovenox 40mg daily post- unfortunately Mrs Tad has developed another extensive VTE event. Vitals and O2 sats are stable, however. 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 Her last event was also post- in 06/2017 when she had extensive PEs and DVTs. At this point she will need lifelong anticoagulation. Reasonable to use lovenox therapeutic doses 1mg/kg BID (150mg), first dose now. Will use lovenox as bridge with coumadin. Coumadin 15mg po x 1 on admission, followed by 10mg on 09/11/19. Of note - her last coumadin dosing regimen in 2019 prior to discontinuation was alternating 10mg with 7.5mg every other day (see anticoagulation clinic notes from 2019). LE US noted for superficial VT in proximal L thigh ECHO without RV strain, EF 55-60% She is going to think about whether to re-establish care with [facility] anticoagulation clinic or go with [facility] AC clinic, will need set up with this on d/c. (2) Morbid obesity with BMI of 50.0-59.9, adult: BMI 57 A1c 5.7 TSH WNL (3) GERD (gastroesophageal reflux disease): cont PPI and H2 zoie as at home (4) Excessive weight gain during , antepartum: A1c, TSH WNL (5) Hematuria, microscopic: as seen on u/a likely due to post- lochia (6) S/P partial gastrectomy: should have Fe studies and B12 levels checked as outpatient (7) DVT prophylaxis: as above Admission and Anticipated Discharge Date Admission Date: September 10, 2019 Subjective Pt is feeling overall improved. 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 She states she has been ambulating to the restroom without WALKER, but felt completely "played out" after coming back to bed. She has been hungry and tolerating PO without issue. Pt denies fever, abd pain, n/v/c/d, LE pain. Pt states that she has baseline LE swelling that was worse in and post- . She has not been c/w wearing her compression stockings, but is doing so today and feels her swelling is better. Pt denies missing any doses of her lovenox, even in the setting. She did not tolerate breast feeding and is not pumping or requiring any equipment for this. Pt states her is home with their two children. Her 2 year old is able to return to day care next week. Review of Systems Review of Systems: Pertinent positives and negatives reviewed in HPI--all others negative Physical Exam Constitutional: WD/WN, vitals as above Eyes: normal visual gonzalez by confrontation and + anicteric sclerae Neck: normal visual inspection and trachea midline Respiratory: normal respiratory effort; no respiratory distress Auscultation: + diminished lung sounds and + crackles (scant); no wheezes Cardiovascular: Rate/Rhythm: regular rate and regular rhythm Gastrointestinal (Abdomen): Inspection/Auscultation: abdomen not distended Percussion/Palpation: abdomen soft; abdomen nontender Musculoskeletal: Head/Neck/Chest: normocephalic and head atraumatic b/l LE edema, peripheral pulses intact Skin: no rashes, warm and dry Neurologic: awake; not confused Speech / Cognition: normal speech Psychiatric: A+Ox3, euthymic affect Results & Data Results & Data ([facility]) Vital Signs (Past 12 Hours) Vital Signs Temp Pulse Pulse Resp BP BP Pulse Ox 09/11/19 12:28 78 23 134/83 97 09/11/19 08:49 36.7 C 85 20 135/73 97 09/11/19 04:02 69 18 109/69 94 PG Care Time/CCT Total # of Minutes Spent Total Time Spent with Patient: Total time spent is greater than 50% in coordination of care (as documented) at patient's floor/unit and/or counseling patient: Coding Level of Care Code 27683 Subseq Hosp Care Lvl 3 Diagnoses Pulmonary emboli I26.99 Pulmonary embolism type: unspecified Chronicity: acute Acute cor pulmonale presence: unspecified Morbid obesity with BMI of 50.0-59.9, adult E66.01; Z68.43 GERD (gastroesophageal reflux disease) K21.9 Esophagitis presence: esophagitis presence not specified Excessive weight gain during , antepartum O26.00 Hematuria, microscopic R31.29 S/P partial gastrectomy Z90.3 DVT prophylaxis Z29.9 (1) Pulmonary emboli Pulmonary embolism type: unspecified Chronicity: acute Acute cor pulmonale presence: unspecified Qualified Code(s): I26.99 - Other pulmonary embolism without acute cor pulmonale (2) GERD (gastroesophageal reflux disease) Esophagitis presence: esophagitis presence not specified Qualified Code(s): K21.9 - Gastro-esophageal reflux disease without esophagitis
[2019-09-11] MEDS ORDERED: WARFARIN SOD 10 MG TAB PO SCH (16:00)
[2019-09-11] MEDS: ALPRAZolam 0.5 MG TABLET PO PRN (21:59)
[2019-09-12] MEDS: ENOXAPARIN 150 MG/ML SYR SQ SCH (06:20)
[2019-09-12 06:44] LABS: INR 1.4 (0.9-1.1); Prothrombin Time 14.5 Seconds (9.0-12.0)
[2019-09-12] MEDS: PANTOprazole 40 MG TAB PO SCH (09:00)
[2019-09-12] MEDS: FAMOTIDINE 20 MG TAB PO SCH (09:00)
[2019-09-12] MEDS: ACETAMINOPHEN 325 MG TAB PO PRN (09:04)
--- NOTE | 2019-09-12 10:52 | Discharge Summary ---
Date of Service September 12, 2019 Admission HPI Per Admitting Provider 43yo female with history of b/l DVTs and b/l PEs post- in June 2017 as well as h/o VTE associated with control usage in 2013 who presents with worsening pleuritic chest pain starting Friday of this week along with dyspnea on exertion. She also has had back pain in the mid-thoracic region. She has had the back pain with taking deep breaths. Retrospectively she recalls having some mild dyspnea with exertion for several days prior to the delivery of her daughter last week. At that time she attributed the dyspnea to carrying her yet to be born child as well as the weight she had gained during . Denies any fevers, chills, cough, anorexia, change in taste or smell, sore throat, nasal congestion, rashes, abdominal pain, nausea, vomiting, or diarrhea. Denies LE edema. Due to the chest discomfort and dyspnea and her prior experience with post- PEs she presented to the ER for evaluation. Patient reports she was hospitalized last weekend for the of her daughter. Delivery was early Friday am and she was discharged on 09/05/19. Throughout her , in coordination with Dr Brand through [facility], she took prophylactic lovenox 40mg daily. Closer to delivery she was changed to unfractionated heparin, and then post- was placed back on lovenox 40mg SC daily. She has taken the lovenox 40mg daily since hospital discharge. Of note - on 09/05/19 she underwent b/l LE venous dopplers due to calf pain. These showed superficial thrombophlebitis of both thighs only. CTA chest today in the ER showed extensive b/l PEs. Lovenox 1mg/kg was ordered by the ER attending. Anticoagulation clinic records from 2019 show that her last coumadin regimen was 10mg alternating with 7.5mg. Principal Diagnosis Pt is still having slight chest discomfort with exertion, but it is much better than [employer]. Still with slight WALKER, but also better. Tolerating PO without issue. Does note increased LBP since delivery of her daughter recently with some radiation into her R LE. Pt denies fever, abd pain, n/v/c/d. She has her baseline LE swelling, using compression stockings. Discharge Exam Constitutional WD/WN, vitals as above Eyes normal visual gonzalez by confrontation and + anicteric sclerae Neck normal visual inspection and trachea midline Respiratory normal respiratory effort; no respiratory distress Auscultation: + crackles (minimal); no wheezes Cardiovascular Rate/Rhythm: regular rate and regular rhythm Gastrointestinal (Abdomen) Inspection/Auscultation: abdomen not distended Percussion/Palpation: abdomen soft; abdomen nontender Musculoskeletal Head/Neck/Chest: normocephalic and head atraumatic Skin no rashes, warm and dry Neurologic awake; not confused Speech / Cognition: normal speech Psychiatric A+Ox3, euthymic affect Discharge Data Allergies Allergy/AdvReac Type Severity Reaction Status Date / Time bupropion Allergy Severe Hives Verified 09/03/19 08:25 Consultations 09/10/19 16:22 ED Decision to Admit Stat Ordered Studies 09/10/19 14:34 CT angio chest PE protocol Stat 09/10/19 17:27 US venous doppler LE Routine Hospital Course (1) Pulmonary emboli: Despite prophylactic lovenox 40mg daily post- unfortunately Mrs Mishra has developed another extensive VTE event. Vitals and O2 sats are stable, however. 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 Her last event was also post- in 06/2017 when she had extensive PEs and DVTs. At this point she will need lifelong anticoagulation. Reasonable to use lovenox therapeutic doses 1mg/kg BID (150mg), first dose now. Will use lovenox as bridge with coumadin. Coumadin 15mg po x 1 on admission, followed by 10mg on 09/11/19 and will take 10mg on 09/11 (day of discharge) Of note - her last coumadin dosing regimen in 2018 prior to discontinuation was alternating 10mg with 7.5mg every other day (see anticoagulation clinic notes from 2019). LE US noted for superficial VT in proximal L thigh ECHO without RV strain, EF 55-60% Planning to re-establish care with [facility] anticoagulation clinic due to proximity to her home Advised to discuss possible home INR monitor (2) Morbid obesity with BMI of 50.0-59.9, adult: BMI 57 A1c 5.7 TSH WNL (3) GERD (gastroesophageal reflux disease): cont PPI and H2 zoie as at home (4) Excessive weight gain during , antepartum: A1c, TSH WNL (5) Hematuria, microscopic: as seen on u/a likely due to post- lochia (6) S/P partial gastrectomy: should have Fe studies and B12 levels checked as outpatient (7) DVT prophylaxis: as above Total Time Total Time Spent Total Time Spent (In Minutes): >30 Total Time Includes: Examination of the Patient, Discharge Planning, Medication Reconciliation and Other Discharge Plan Discharge Items Patient Disposition: Home - Self-Care Reason For Visit: B/L PES Discharge Diagnosis: Pulmonary embolism Activity: Resume your previous activity Non-emergency contact: Primary Care Provider Call non-emergency contact if: you have any medication questions, your symptoms worsen and your pain is worsening Follow-up/Referrals: Flor Meléndez MD, PhD [Pathologist] - Raine Gutierrez DO [Primary Care Provider] - Diet: Regular Addtl Attending Provider Instructions: You should take 10mg of coumadin tonight. You will have your INR drawn tomorrow morning. Dr. Meléndez will manage your coumadin dosing moving forward. You will need to use overlapping lovenox injections until your INR is at goal range of 2-3 for 24hrs. You may end up on lovenox for more than 24hrs after your INR is within range if you were not on lovenox for 5 days total by that time. Pending Studies at Discharge: Yes Studies:: Hypercoag panel Stand-Alone Forms: My [facility] [employer], Smoking Cessation Medications and DC Order Prescriptions: New enoxaparin [Lovenox] 150 mg/mL Syringe 150 mg subcut Q12H Qty: 10 RF: 0 warfarin [Coumadin] 5 mg tablet 5 mg PO DAILY Qty: 60 RF: 0 Continued pantoprazole [Protonix] 40 mg Tablet,Delayed Release (Dr/Ec) 40 mg PO QAM RF: 0 PNV [id number] fumarate-FA [] 28 mg iron- 800 mcg Tablet 1 tab PO DAILY RF: 0 alprazolam [Xanax] 0.5 mg tablet 0.25 - 0.5 mg PO TID PRN (Reason: Anxiety) RF: 0 famotidine [Pepcid] 20 mg tablet 20 mg PO DAILY RF: 0 Discontinued enoxaparin 40 mg/0.4 mL Syringe 40 mg subcut QAM Qty: 4 RF: 0 Discharge Orders: Discharge Order (Routine); Ordered 05/17/20 Ordered By: Gaby Ernst Admission Data Admit Date/Time: 09/10/19 16:33 Attending Provider: Gaby Ernst Admit Provider: Virgilio Pathak Primary Care Provider: Raine Gutierrez Other Providers: Virgilio Pathak Other Interventions: Discharge Summary Assessment (RN) Last Done: 09/12/19 11:57 DC Date/Time DO NOT enter until pt leaves facility: 09/12/19 14:32 Coding Level of Care Code D/C Day Management >30 mins Diagnoses Pulmonary emboli I26.99 Acute cor pulmonale presence: unspecified Chronicity: acute Pulmonary embolism type: unspecified Morbid obesity with BMI of 50.0-59.9, adult E66.01; Z68.43 GERD (gastroesophageal reflux disease) K21.9 Esophagitis presence: esophagitis presence not specified Excessive weight gain during , antepartum O26.00 Hematuria, microscopic R31.29 S/P partial gastrectomy Z90.3 DVT prophylaxis Z29.9
== END 2019-09-12 14:32 | disposition home or self-care (01) | DRG 776 ==
LOC: ED 13:59 → SUATTDRO 16:33 → 1E 16:33 → 2S 09-11 18:48